=== PATIENT | female | born 1940 | race Caucasian/White ===

== ENCOUNTER → 2020-03-03 | Outpatient (CLI) | payer MEDICARE, OTHER ==
--- NOTE | 2020-03-04 22:55 | CT ---
EXAMINATION TYPE: CT lumbar spine wo con DATE OF EXAM: 03/03/2020 COMPARISON: None HISTORY: 79-year-old female low back pain with radiation bilaterally to the legs TECHNIQUE: Contiguous axial scanning of the lumbar spine without IV contrast. Coronal and sagittal re constructions performed. CT DLP: 559.5 mGycm Automated exposure control for dose reduction was used. FINDINGS: Punctate 2 mm nonobstructive left renal calculus. Calcified granulomas within the spleen. Small hiata l hernia. Moderate prostatic calcification throughout the abdominal aorta with fusiform infrarenal AAA measurin g 3.2 cm. Hypodense cortical lesions lateral right kidney measuring up to 1.6 cm, probable cysts. 2.2 cm diverticulum of the second/third portion of the duodenum projecting into the pancreatic head r egion. Mild degenerative changes at the SI joints. There is a left L5 hemisacralization with a degenerative assimilation joint. Moderate degenerative disc disease L5-S1 with diffuse disc bulge, mild height loss, and vacuum phenom enon. Mild degenerative disc disease elsewhere in the lumbar spine with bulging discs. Ligamentum flavum thickening greatest at L3-L4. Hypertrophic facet arthropathy mid and lower lumbar s pine. There is grade 1 anterolisthesis at L3-L4 and trace grade 1 retrolisthesis at L4-L5. Vertebral body heights are preserved. Posterior disc bulges impress on the ventral thecal sac at T12-L1, L1-L2, and L2-L3 without significa nt spinal canal stenosis. However, at L3-L4, diffuse disc bulge with ligamentum flavum thickening may contribute to a moderate to severe spinal canal stenosis. At L4-L5, there is a mild spinal canal stenosis. On the left, changes result in a moderate near foraminal stenosis at L4-L5 and L5-S1 and mild at L1-L 2. On the right, changes result in mild neuroforaminal stenoses at multiple levels. IMPRESSION: 1. MODERATE DEGENERATIVE DISC DISEASE L5-S1 AND MILD THROUGHOUT THE REMAINDER OF THE LUMBAR SPINE. 2. 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 GRADE 1 SPONDYLOLISTHESIS AT L3-L4 AND L 4-L5. 3. MARKED LIGAMENTUM FLAVUM THICKENING AT L3-L4. ALONG WITH DISC BULGE, THERE IS A MODERATE TO SEVERE SPINAL CANAL STENOSIS. MILD SPINAL CANAL STENOSIS AT L4-L5. 4. VARIABLE MILD TO MODERATE FORAMINAL STENOSES OUTLINED ABOVE, GREATER ON THE LEFT. 5. A 3.2 cm FUSIFORM INFRARENAL AAA. 6. LEFT L5 HEMISACRALIZATION WITH A DEGENERATIVE ASSIMILATION JOINT.
== END | disposition home or self-care (01) ==
LOC: RADCTMAIN 10:54
PROVIDERS: ATTEND Family Medicine
DX: M48.061 Spinal stenosis, lumbar region without neurogenic claudication (principal); M51.26 Other intervertebral disc displacement, lumbar region; M43.16 Spondylolisthesis, lumbar region; M43.17 Spondylolisthesis, lumbosacral region; M47.896 Other spondylosis, lumbar region; M51.36 Other intervertebral disc degeneration, lumbar region; M51.37 Other intervertebral disc degeneration, lumbosacral region; Z88.8 Allergy status to other drugs, medicaments and biological substances
CPT/HCPCS: 72131

== ENCOUNTER → 2021-02-13 | Outpatient (CLI) | payer MEDICARE | END | disposition home or self-care (01) | DX: N64.4 Mastodynia (principal) | CPT/HCPCS: 77066; 76642; G0279; 77062 ==

== ENCOUNTER 2021-05-28 19:02 | Emergency (ER) | payer MEDICARE ==
[2021-05-28 19:16] VITALS: TEMP 97
--- NOTE | 2021-05-28 20:07 | ED ---
General Adult HPI - General Chief complaint: Shortness of Breath Stated complaint: SOB Time Seen by Provider: 05/28/21 19:05 Source: patient, RN notes reviewed, old records reviewed Mode of arrival: wheelchair Limitations: no limitations - History of Present Illness Initial comments: This is an 80-year-old female presents emergency Department complaining of some nasal drainage and a cough. Patient states she went to [facility] and they told her that her pulse ox is in the 80s and she might have pneumonia. Patient was sent to our facility. Patient was oxygenating 96% on room air. Patient denied shortness of breath though the nursing notes that she was short of breath patient denied to me and family deny to me. Patient's only complaint was nasal drainage and occasionally coughing up a little bit of sputum. Patient denies any fever. Patient denies any swelling in legs or calf tenderness. Patient denies any chest pain or palpitations. Patient denies any abdominal pain patient denies nausea vomiting diarrhea. Patient states she did get the COVID vaccine. - Related Data Home Medications Medication Instructions Recorded Confirmed Calcium Carbonate [Calcium] 600 mg PO DAILY 07/31/16 07/31/16 Ibuprofen [Motrin] 800 mg PO Q6HR PRN 07/31/16 07/31/16 L.acidoph,Paracasei, B.lactis 1 cap PO DAILY 07/31/16 07/31/16 [Probiotic] Multivitamins, Thera [Multivitamin] 1 tab PO DAILY 07/31/16 07/31/16 Previous Rx's Medication Instructions Recorded Ciprofloxacin HCl [Cipro] 500 mg PO Q12HR 7 Days tablet 07/31/16 HYDROcodone/APAP 5-325MG [[place] 1 tab PO Q6HR PRN #20 tab 07/31/16 5-325] Allergies Allergy/AdvReac Type Severity Reaction Status Date / Time No Known Allergies Allergy Verified 05/28/21 19:12 Review of Systems ROS Statement: Those systems with pertinent positive or pertinent negative responses have been documented in the HPI. ROS Other: All systems not noted in ROS Statement are negative. Past Medical History Past Medical History: No Reported History History of Any Multi-Drug Resistant Organisms: None Reported Additional Past Surgical History / Comment(s): neck surgery Past Psychological History: No Psychological Hx Reported Smoking Status: Former smoker Past Alcohol Use History: None Reported Past Drug Use History: None Reported General Exam - General Exam Comments Initial Comments: GENERAL: Patient is well-developed and well-nourished. Patient is nontoxic and well- hydrated and is in no acute distress. ENT: Neck is soft and supple. No significant lymphadenopathy is noted. Oropharynx is clear. Moist mucous membranes. Neck has full range of motion without eliciting any pain. EYES: The sclera were anicteric and conjunctiva were pink and moist. Extraocular movements were intact and pupils were equal round and reactive to light. Eyelids were unremarkable. PULMONARY: Unlabored respirations. Good breath sounds bilaterally. No audible rales rhonchi or wheezing was noted. CARDIOVASCULAR: There is a regular rate and rhythm without any murmurs gallops or rubs. ABDOMEN: Soft and nontender with normal bowel sounds. SKIN: Skin is clear with no lesions or rashes and otherwise unremarkable. NEUROLOGIC: Patient is alert and oriented x3. Cranial nerves II through XII are grossly intact. Motor and sensory are also intact. Normal speech, volume and content. Symmetrical smile. MUSCULOSKELETAL: Normal extremities with adequate strength and full range of motion. LYMPHATICS: No significant lymphadenopathy is noted PSYCHIATRIC: Normal psychiatric evaluation. Limitations: no limitations Course Vital Signs 05/28/21 05/28/21 19:12 20:32 Temperature 97 F L Pulse Rate 93 83 Respiratory 18 20 Rate Blood Pressure 131/71 125/73 O2 Sat by Pulse 96 95 Oximetry Medical Decision Making - Medical Decision Making EKG shows normal sinus rhythm at 82 bpm DC interval 222 QRS is 82 QT interval 3 54 QTC is 413. Patient's EKG shows no ST segment elevation Chest x-ray shows no acute abnormality. Patient's pulse ox was 9596% all-time the emergency department. Patient stated that she had no symptoms at this time. - Lab Data Result diagrams: 05/28/21 20:13 Lab Results 05/28/21 Range/Units 20:13 WBC 6.7 (3.8-10.6) k/uL RBC 4.61 (3.80-5.40) m/uL Hgb 11.9 (11.4-16.0) gm/dL Hct 38.1 (34.0-46.0) % MCV 82.7 (80.0-100.0) fL MCH 25.7 (25.0-35.0) pg MCHC 31.1 (31.0-37.0) g/dL RDW 15.4 (11.5-15.5) % Plt Count 317 (150-450) k/uL MPV 6.6 Neutrophils % 71 % Lymphocytes % 17 % Monocytes % 8 % Eosinophils % 2 % Basophils % 1 % Neutrophils # 4.7 (1.3-7.7) k/uL Lymphocytes # 1.1 (1.0-4.8) k/uL Monocytes # 0.5 (0-1.0) k/uL Eosinophils # 0.1 (0-0.7) k/uL Basophils # 0.0 (0-0.2) k/uL Disposition Clinical Impression: Upper respiratory infection Disposition: HOME SELF-CARE Instructions (If sedation given, give patient instructions): Upper Respiratory Infection (ED) Is patient prescribed a controlled substance at d/c from ED?: No Referrals: Nikko De La Rosa Jr, DO [Primary Care Provider] - 1-2 days Time of Disposition: 21:14
--- NOTE | 2021-05-28 20:27 | XR ---
EXAMINATION TYPE: XR chest 2V DATE OF EXAM: 05/28/2021 COMPARISON: NONE HISTORY: Short of breath TECHNIQUE: 2 views FINDINGS: There is no heart failure nor confluent pneumonic infiltrate. Costophrenic angles are clear . There are no hilar masses. Thoracic aorta is atheromatous. There are chest leads. Bony thorax is in tact. IMPRESSION: No active cardiopulmonary disease. Normal heart.
[2021-05-28 21:06] LABS: Basophils % (A) 1 %; Eosinophils # (A) 0.1 k/uL (0-0.7); Eosinophils % (A) 2 %; HCT 38.1 % (34.0-46.0); HGB 11.9 gm/dL (11.4-16.0); Lymphocytes # (A) 1.1 k/uL (1.0-4.8); Lymphocytes % (A) 17 %; MCH 25.7 pg (25.0-35.0); MCHC 31.1 g/dL (31.0-37.0); MCV 82.7 fL (80.0-100.0); Mean Platelet Volume 6.6; Monocytes # (A) 0.5 k/uL (0-1.0); Monocytes % (A) 8 %; Neutrophils # (A) 4.7 k/uL (1.3-7.7); Neutrophils % (A) 71 %; Platelet Count 317 k/uL (150-450); RBC 4.61 m/uL (3.80-5.40); RDW 15.4 % (11.5-15.5); WBC 6.7 k/uL (3.8-10.6)
[2021-05-28 21:19] LABS: Albumin 4.1 g/dL (3.5-5.0); Calcium 9.7 mg/dL (8.4-10.2); Magnesium 2.5 mg/dL (1.6-2.3); Potassium 4.3 mmol/L (3.5-5.1); Total Bilirubin 0.5 mg/dL (0.2-1.3)
[2021-05-28 22:00] VITALS: BP 139/68; PULSE 79; RESP 18
== END 2021-05-28 21:34 | disposition home or self-care (01) ==
LOC: EC 19:02
DX: J06.9 Acute upper respiratory infection, unspecified (principal); Z87.891 Personal history of nicotine dependence; Z23 Encounter for immunization; Z20.822 Contact with and (suspected) exposure to COVID-19
CPT/HCPCS: 36415; 71046; 80053; 83605; 83735; 83880; 84484; 85025; 87635; 93005; 99285

== ENCOUNTER 2022-06-21 15:26 | Emergency (ER) | payer MEDICARE ==
[2022-06-21 15:40] VITALS: TEMP 98.1
--- NOTE | 2022-06-21 15:42 | ED ---
General Adult HPI - General Chief complaint: Recheck/Abnormal Lab/Rx Stated complaint: Bleeding Time Seen by Provider: 06/21/22 15:34 Source: EMS Mode of arrival: EMS Limitations: no limitations - History of Present Illness Initial comments: 's patient is an 81-year-old woman who is reported that have history of dementia. She is sent here from her long-term care facility to have an evaluation. Patient's family reportedly went for her visit today and when they were went in the patient's bathroom they saw and amount of blood on the floor. Per the report was estimated between 20 and 30 mL. The patient is not able to account for this. When I interview the patient, she denies complaints. Severity scale (1-10): 0 Improves with: none Worsens with: none Associated Symptoms: denies other symptoms Treatments Prior to Arrival: none - Related Data Home Medications Medication Instructions Recorded Confirmed Calcium Carbonate [Calcium] 600 mg PO DAILY 07/31/16 07/31/16 Ibuprofen [Motrin] 800 mg PO Q6HR PRN 07/31/16 07/31/16 L.acidoph,Paracasei, B.lactis 1 cap PO DAILY 07/31/16 07/31/16 [Probiotic] Multivitamins, Thera [Multivitamin] 1 tab PO DAILY 07/31/16 07/31/16 Previous Rx's Medication Instructions Recorded Ciprofloxacin HCl [Cipro] 500 mg PO Q12HR 7 Days tablet 07/31/16 HYDROcodone/APAP 5-325MG [[place] 1 tab PO Q6HR PRN #20 tab 07/31/16 5-325] Allergies Allergy/AdvReac Type Severity Reaction Status Date / Time No Known Allergies Allergy Verified 06/21/22 15:39 Review of Systems ROS Statement: Those systems with pertinent positive or pertinent negative responses have been documented in the HPI. ROS Other: All systems not noted in ROS Statement are negative. Constitutional: Denies: fever Respiratory: Denies: cough, dyspnea Cardiovascular: Denies: chest pain Gastrointestinal: Denies: abdominal pain, vomiting Musculoskeletal: Denies: back pain Neurological: Denies: headache Past Medical History Past Medical History: No Reported History History of Any Multi-Drug Resistant Organisms: None Reported Additional Past Surgical History / Comment(s): neck surgery Past Psychological History: No Psychological Hx Reported Smoking Status: Former smoker Past Alcohol Use History: None Reported Past Drug Use History: None Reported General Exam Limitations: no limitations General appearance: alert, in no apparent distress Head exam: Present: atraumatic, normocephalic Eye exam: Present: normal appearance. Absent: scleral icterus, conjunctival injection Respiratory exam: Present: normal lung sounds bilaterally. Absent: respiratory distress, wheezes, rales, rhonchi, stridor Cardiovascular Exam: Present: regular rate, normal rhythm, normal heart sounds. Absent: systolic murmur, diastolic murmur, rubs, gallop GI/Abdominal exam: Present: soft. Absent: distended, tenderness, guarding, rebound, rigid, mass Extremities exam: Present: normal inspection, normal capillary refill Back exam: Present: normal inspection. Absent: vertebral tenderness Neurological exam: Present: alert Skin exam: Present: warm, dry, intact, pallor. Absent: rash Course Vital Signs 06/21/22 06/21/22 15:32 19:00 Temperature 98.1 F Pulse Rate 81 96 Respiratory 18 16 Rate Blood Pressure 165/95 153/73 O2 Sat by Pulse 96 99 Oximetry Medical Decision Making - Medical Decision Making This patient is an 81-year-old woman brought to have evaluation of suspected hematemesis versus possible hemoptysis. Workup, patient found to be anemic versus baseline. Last hemoglobin from May 28 was 11.9 today 8.9 Rectal exam does reveal melanotic stool which is occult positive. Did have detailed discussion with family at bedside regarding treatment options and they would prefer the patient seen by gastroenterology as there is not covering GI physician, will transfer and the are in agreement with Stephanie Duckworth. Case discussed with Dr. Justice will accept transfer. - Lab Data Result diagrams: 06/21/22 15:50 06/21/22 15:50 Lab Results 06/21/22 06/21/22 06/21/22 Range/Units 15:50 15:50 17:33 WBC 6.8 (3.8-10.6) k/uL RBC 3.27 L (3.80-5.40) m/uL Hgb 8.9 L (11.4-16.0) gm/dL Hct 27.1 L (34.0-46.0) % MCV 83.0 (80.0-100.0) fL MCH 27.3 (25.0-35.0) pg MCHC 32.9 (31.0-37.0) g/dL RDW 16.7 H (11.5-15.5) % Plt Count 278 (150-450) k/uL MPV 7.5 Neutrophils % 75 % Lymphocytes % 18 % Monocytes % 5 % Eosinophils % 1 % Basophils % 1 % Neutrophils # 5.0 (1.3-7.7) k/uL Lymphocytes # 1.2 (1.0-4.8) k/uL Monocytes # 0.4 (0-1.0) k/uL Eosinophils # 0.0 (0-0.7) k/uL Basophils # 0.0 (0-0.2) k/uL Hypochromasia Moderate Anisocytosis Slight Sodium 139 (137-145) mmol/L Potassium 4.1 (3.5-5.1) mmol/L Chloride 106 (98-107) mmol/L Carbon Dioxide 22 (22-30) mmol/L Anion Gap 11 mmol/L BUN 39 H (7-17) mg/dL Creatinine 0.62 (0.52-1.04) mg/dL Est GFR (CKD-EPI)AfAm >90 (>60 ml/min/1.73 sqM) Est GFR (CKD-EPI)NonAf 84 (>60 ml/min/1.73 sqM) Glucose 109 H (74-99) mg/dL Calcium 8.5 (8.4-10.2) mg/dL Total Bilirubin 0.5 (0.2-1.3) mg/dL AST 23 (14-36) U/L ALT 19 (4-34) U/L Alkaline Phosphatase 52 (38-126) U/L Total Protein 6.2 L (6.3-8.2) g/dL Albumin 3.9 (3.5-5.0) g/dL Stool Occult Blood Positive H (Negative) Disposition Clinical Impression: Anemia, GI bleeding Disposition: OTHER INSTITUTION NOT DEFINED Condition: Fair Is patient prescribed a controlled substance at d/c from ED?: No Referrals: Nikko De La Rosa Jr, DO [Primary Care Provider] - 1-2 days - Out of Hospital Transfer - Req. Specs Out of Hospital Transfer - Requested Specifics: Other Emergency Center
[2022-06-21 16:12] LABS: Anisocytosis Slight; Basophils % (A) 1 %; Eosinophils % (A) 1 %; HCT 27.1 % (34.0-46.0); HGB 8.9 gm/dL (11.4-16.0); Hypochromasia Moderate; Lymphocytes # (A) 1.2 k/uL (1.0-4.8); Lymphocytes % (A) 18 %; MCH 27.3 pg (25.0-35.0); MCHC 32.9 g/dL (31.0-37.0); Mean Platelet Volume 7.5; Monocytes # (A) 0.4 k/uL (0-1.0); Monocytes % (A) 5 %; Neutrophils % (A) 75 %; Platelet Count 278 k/uL (150-450); RBC 3.27 m/uL (3.80-5.40); RDW 16.7 % (11.5-15.5); WBC 6.8 k/uL (3.8-10.6)
[2022-06-21 16:56] LABS: ALT 19 U/L (4-34); AST 23 U/L (14-36); African American GFR (CKD) >90 (>60 ml/min/1.73 sqM); Albumin 3.9 g/dL (3.5-5.0); Alkaline Phosphatase 52 U/L (38-126); Anion Gap 11 mmol/L; Blood Urea Nitrogen 39 mg/dL (7-17); Calcium 8.5 mg/dL (8.4-10.2); Carbon Dioxide 22 mmol/L (22-30); Chloride 106 mmol/L (98-107); Glucose 109 mg/dL (74-99); Non-African American GFR(CKD) 84 (>60 ml/min/1.73 sqM); Potassium 4.1 mmol/L (3.5-5.1); Sodium 139 mmol/L (137-145); Total Bilirubin 0.5 mg/dL (0.2-1.3); Total Protein 6.2 g/dL (6.3-8.2)
--- NOTE | 2022-06-21 17:24 | XR ---
EXAMINATION TYPE: XR chest 2V DATE OF EXAM: 06/21/2022 COMPARISON: 06/28/2021 HISTORY: Cough TECHNIQUE: Frontal and lateral views of the chest are obtained. FINDINGS: There is no focal air space opacity, pleural effusion, or pneumothorax seen. The cardiac silhouette size is within normal limits. The osseous structures are intact. IMPRESSION: No acute cardiopulmonary process.
[2022-06-21 19:22] VITALS: BP 153/73; PULSE 96; RESP 16
== END 2022-06-21 19:59 | disposition other institution (70) ==
LOC: EC 15:26
DX: D64.9 Anemia, unspecified (principal); K92.2 Gastrointestinal hemorrhage, unspecified; Z87.891 Personal history of nicotine dependence
CPT/HCPCS: 36415; 71046; 80053; 82272; 85025; 99284

== ENCOUNTER 2023-01-29 22:12 | Inpatient (IN) | payer MEDICARE ==
--- NOTE | 2023-01-29 22:52 | ED ---
General Adult HPI - General Chief complaint: Altered Mental Status Stated complaint: AMS, Weakness Time Seen by Provider: 01/29/23 22:22 Source: family Mode of arrival: ambulatory Limitations: no limitations - History of Present Illness Initial comments: Dictation was produced using [employer] dictation software. please excuse any grammatical, word or spelling errors. Chief Complaint: 82-year-old female presents to the emergency department for altered mental status. History of Present Illness: Patient is 82-year-old female she was seen by her primary care doctor proximally one month ago for symptoms of dementia. She was prescribed dementia medications. Initial cell follow-up appointment tomorrow. Patient apparently lives at independent living facility. History obtained from daughter states that patient is having worsening mental status changes. She has been refusing baths not caring for herself. Daughter reports that patient needs placement. Patient has no complaints at this time. The ROS documented in this emergency department record has been reviewed and confirmed by me. Those systems with pertinent positive or negative responses have been documented in the HPI. All other systems are other negative and/or n oncontributory. - Related Data Home Medications Medication Instructions Recorded Confirmed Calcium Carbonate [Calcium] 600 mg PO DAILY 07/31/16 07/31/16 Ibuprofen [Motrin] 800 mg PO Q6HR PRN 07/31/16 07/31/16 L.acidoph,Paracasei, B.lactis 1 cap PO DAILY 07/31/16 07/31/16 [Probiotic] Multivitamins, Thera [Multivitamin] 1 tab PO DAILY 07/31/16 07/31/16 Previous Rx's Medication Instructions Recorded Ciprofloxacin HCl [Cipro] 500 mg PO Q12HR 7 Days tablet 07/31/16 HYDROcodone/APAP 5-325MG [[place] 1 tab PO Q6HR PRN #20 tab 07/31/16 5-325] Allergies Allergy/AdvReac Type Severity Reaction Status Date / Time No Known Allergies Allergy Verified 01/29/23 22:22 Review of Systems ROS Statement: Those systems with pertinent positive or pertinent negative responses have been documented in the HPI. ROS Other: All systems not noted in ROS Statement are negative. Past Medical History Past Medical History: No Reported History History of Any Multi-Drug Resistant Organisms: None Reported Additional Past Surgical History / Comment(s): neck surgery Past Psychological History: No Psychological Hx Reported Smoking Status: Former smoker Past Alcohol Use History: None Reported Past Drug Use History: None Reported General Exam - General Exam Comments Initial Comments: PHYSICAL EXAM: General Impression: Alert and oriented x2/4, not in acute distress HEENT: Normocephalic atraumatic, extra-ocular movements intact, pupils equal and reactive to light bilaterally, mucous membranes moist. Cardiovascular: Heart regular rate and rhythm Chest: Able to complete full sentences, no retractions, no tachypnea Abdomen: abdomen soft, non-tender, non-distended, no organomegaly Musculoskeletal: Pulses present and equal in all extremities, no peripheral edema Motor: no focal deficits noted Neurological: CN II-XII grossly intact, no focal motor or sensory deficits noted Skin: Intact with no visualized rashes Psych: Normal affect and mood Limitations: no limitations Course Vital Signs 01/29/23 01/29/23 01/29/23 22:18 22:21 23:00 Temperature 98.1 F Pulse Rate 88 765 H 73 Respiratory 18 16 20 Rate Blood Pressure 94/62 83/44 O2 Sat by Pulse 97 95 Oximetry EKG Findings - EKG Comments: EKG Findings:: My EKG interpretation: Ventricular rate 79, sinus rhythm,. 122, QRS 86, QTC 391. No FL prolongation, no QTC prolongation, no ST or T-wave changes noted. Overall, this EKG is unremarkable Medical Decision Making - Medical Decision Making Was pt. sent in by a medical professional or institution (, PA, FIRST OFFICER AND FLIGHT INSTRUCTOR, urgent care, hospital, or halfway...) When possible be specific @ -No Did you speak to anyone other than the patient for history (EMS, parent, family, police, friend...)? What history was obtained from this source @ -History of present illness obtained from daughter was at the bedside. See above for further detail Did you review nursing and triage notes (agree or disagree)? Why? @ -I reviewed and agree with nursing and triage notes Were old charts reviewed (outside hosp., previous admission, EMS record, old EKG, old radiological studies, urgent care reports/EKG's, halfway records)? Report findings @ -No old charts were reviewed Differential Diagnosis (chest pain, altered mental status, abdominal pain women, abdominal pain men, vaginal bleeding, musculoskeletal, weakness, fever, dyspnea, syncope, headache, dizziness, GI bleed, back pain, seizure, CVA, palpatations, mental health)? @ -Differential Altered Mental Status: Hypoglycemia, DKA, hypercapnia, ETOH, overdose, CO poisoning, trauma, myxedema coma, HTN encephalopathy, infection, encephalitis, psychosis, intercranial hemorrhage, hepatic encephalopathy, meningitis, CVA, this is not meant to be an all-inclusive list EKG interpreted by me (3pts min.). @ -As above X-rays interpreted by me (1pt min.). @ -None done CT interpreted by me (1pt min.). @ -Computed tomography scan the brain is unremarkable U/S interpreted by me (1pt. min.). @ -None done What testing was considered but not performed or refused? (CT, X-rays, U/S, labs)? Why? @ -None What meds were considered but not given or refused? Why? @ -None Did you discuss the management of the patient with other professionals (professionals i.e. , PA, FIRST OFFICER AND FLIGHT INSTRUCTOR, lab, RT, psych nurse, manager social responsibility, welt cutter, teacher, president and chief executive officer, bottle caser)? Give summary @ -Presentation, family's wishes and concerns were discussed with Dr. De La Rosa for admission Was smoking cessation discussed for >3mins.? @ -No Was critical care preformed (if so, how long)? @ -No Were there social determinants of health that impacted care today? How? (Homelessness, low income, unemployed, alcoholism, drug addiction, transport ation, low edu. Level, literacy, decrease access to med. care, group home, rehab)? @ -No Was there de-escalation of care discussed even if they declined (Discuss DNR or withdrawal of care, Hospice)? DNR status @ -No What co-morbidities impacted this encounter? (DM, HTN, Smoking, COPD, CAD, Cancer, CVA, ARF, Chemo, Hep., AIDS, mental health diagnosis, sleep apnea, morbid obesity)? @ -None Was patient admitted / discharged? Hospital course, mention meds given and route, prescriptions, significant lab abnormalities, going to OR and other pertinent info. @ -82-year-old female with worsening dementia presents to the ER for acutely worsening status changes. Vital signs are stable. Patient likely had progressive dementia. Blood work is unremarkable. Urinalysis positive for urinary tract infection. Patient given ceftriaxone. Patient be admitted for further care. Undiagnosed new problem with uncertain prognosis? @ -No Drug Therapy requiring intensive monitoring for toxicity (Heparin, Nitro, Insulin, Cardizem)? @ -No Were any procedures done? @ -No Diagnosis/symptom? Acute, or Chronic, or Acute on Chronic? Uncomplicated (wit hout systemic symptoms) or Complicated (systemic symptoms)? @ -UTI with mental status changes Side effects of treatment? @ -No Exacerbation, Progression, or Severe Exacerbation? @ -No Poses a threat to life or bodily function? How? (Chest pain, [place], PA, pneumonia, PE, COPD, DKA, ARF, appy, cholecystitis, CVA, Diverticulitis, Homicidal, Suicidal, threat to staff... and all critical care pts) @ -yes - Lab Data Result diagrams: 01/29/23 22:50 01/29/23 22:50 Lab Results 01/29/23 01/29/23 01/30/23 Range/Units 22:50 22:50 01:57 WBC 6.4 (3.8-10.6) k/uL RBC 4.74 (3.80-5.40) m/uL Hgb 9.3 L (11.4-16.0) gm/dL Hct 31.4 L (34.0-46.0) % MCV 66.1 L (80.0-100.0) fL MCH 19.6 L (25.0-35.0) pg MCHC 29.6 L (31.0-37.0) g/dL RDW 17.9 H (11.5-15.5) % Plt Count 384 (150-450) k/uL MPV 7.0 Neutrophils % 66 % Lymphocytes % 20 % Monocytes % 9 % Eosinophils % 3 % Basophils % 1 % Neutrophils # 4.2 (1.3-7.7) k/uL Lymphocytes # 1.3 (1.0-4.8) k/uL Monocytes # 0.6 (0-1.0) k/uL Eosinophils # 0.2 (0-0.7) k/uL Basophils # 0.0 (0-0.2) k/uL Hypochromasia Marked Anisocytosis Slight Microcytosis Marked Sodium 134 L (137-145) mmol/L Potassium 4.2 (3.5-5.1) mmol/L Chloride 99 (98-107) mmol/L Carbon Dioxide 29 (22-30) mmol/L Anion Gap 6 mmol/L BUN 16 (7-17) mg/dL Creatinine 0.92 (0.52-1.04) mg/dL Est GFR (CKD-EPI)AfAm 67 (>60 ml/min/1.73 sqM) Est GFR (CKD-EPI)NonAf 58 (>60 ml/min/1.73 sqM) Glucose 112 H (74-99) mg/dL Calcium 8.6 (8.4-10.2) mg/dL Urine Color Yellow Urine Appearance Cloudy H (Clear) Urine pH 6.0 (5.0-8.0) Ur Specific [place] 1.018 (1.001-1.035) Urine Protein Trace H (Negative) Urine Glucose (UA) Negative (Negative) Urine Ketones Negative (Negative) Urine Blood Negative (Negative) Urine Nitrite Negative (Negative) Urine Bilirubin Negative (Negative) Urine Urobilinogen 4.0 (<2.0) mg/dL Ur Leukocyte Esterase Large H (Negative) Urine RBC 2 (0-5) /hpf Urine WBC 45 H (0-5) /hpf Urine WBC Clumps Many H (None) /hpf Ur Squamous Epith Cells 2 (0-4) /hpf Calcium Oxalate Crystal Moderate H (None) /hpf Amorphous Sediment Occasional H (None) /hpf Urine Bacteria Many H (None) /hpf Hyaline Casts 5 H (0-2) /lpf Urine Mucus Moderate H (None) /hpf Disposition Clinical Impression: UTI (urinary tract infection) Disposition: ADMITTED IP TO THIS [facility] Condition: Fair Referrals: Nikko De La Rosa Jr, DO [Primary Care Provider] - 1-2 days Decision Time: 03:00
[2023-01-29 23:14] LABS: Anisocytosis Slight; Basophils % (A) 1 %; Eosinophils # (A) 0.2 k/uL (0-0.7); Eosinophils % (A) 3 %; HCT 31.4 % (34.0-46.0); HGB 9.3 gm/dL (11.4-16.0); Hypochromasia Marked; Lymphocytes # (A) 1.3 k/uL (1.0-4.8); Lymphocytes % (A) 20 %; MCH 19.6 pg (25.0-35.0); MCHC 29.6 g/dL (31.0-37.0); MCV 66.1 fL (80.0-100.0); Microcytosis Marked; Monocytes # (A) 0.6 k/uL (0-1.0); Monocytes % (A) 9 %; Neutrophils # (A) 4.2 k/uL (1.3-7.7); Neutrophils % (A) 66 %; Platelet Count 384 k/uL (150-450); RBC 4.74 m/uL (3.80-5.40); RDW 17.9 % (11.5-15.5); WBC 6.4 k/uL (3.8-10.6)
[2023-01-29 23:16] LABS: African American GFR (CKD) 67 (>60 ml/min/1.73 sqM); Anion Gap 6 mmol/L; Blood Urea Nitrogen 16 mg/dL (7-17); Calcium 8.6 mg/dL (8.4-10.2); Carbon Dioxide 29 mmol/L (22-30); Chloride 99 mmol/L (98-107); Glucose 112 mg/dL (74-99); Non-African American GFR(CKD) 58 (>60 ml/min/1.73 sqM); Potassium 4.2 mmol/L (3.5-5.1); Sodium 134 mmol/L (137-145)
--- NOTE | 2023-01-30 01:53 | CT ---
EXAM: CT Head Without Intravenous Contrast CLINICAL HISTORY: ITS.REASON CT Reason: ams TECHNIQUE: Axial computed tomography images of the head/brain without intravenous contrast. CTDI is 49.1 mGy and DLP is 1217.4 mGy-cm. This CT exam was performed using one or more of the following dose reduction techniques: automated exposure control, adjustment of the mA and/or kV according to patient size, and/or use of iterative reconstruction technique. COMPARISON: None FINDINGS: Brain: No acute infarct or hemorrhage identified. No extra-axial fluid collection. No mass effect or midline shift. Scattered areas of hypoattenuation in the supratentorial white matter likely represent chronic small vessel ischemic changes. Ventricles and sulci: Prominence of the ventricles and sulci is likely secondary to cerebral volume loss. Bones: Degenerative changes of the temporomandibular joints. No bony lesion or acute fracture. Subcutaneous tissues: Normal. Sinuses: Normal. No air-fluid levels or mucosal thickening. Mastoid air cells: Normal. Orbits: Bilateral lens implants. Other: Atherosclerotic calcifications in the intracranial vasculature. IMPRESSION: 1. No acute intracranial abnormality. 2. Chronic small vessel ischemic changes and cerebral volume loss.
[2023-01-30 03:02] LABS: Amorphous Sediment,Urine Occasional /hpf; Appearance,Urine Cloudy (Clear); Bacteria,Urine Many /hpf; Bilirubin,Urine Negative (Negative); Blood,Urine Negative (Negative); Calcium Oxalate Crystals,Urine Moderate /hpf; Color,Urine Yellow; Glucose,Urine (UA) Negative (Negative); Hyaline Casts,Urine 5 /lpf (0-2); Ketones,Urine Negative (Negative); Leukocyte Esterase,Urine Large (Negative); Mucus,Urine Moderate /hpf; Nitrite,Urine Negative (Negative); Protein,Urine Trace (Negative); RBC,Urine 2 /hpf (0-5); Specific Gravity,Urine 1.018 (1.001-1.035); Squamous Epithelial Cell,Urine 2 /hpf (0-4); WBC,Urine 45 /hpf (0-5)
[2023-01-30] MEDS ORDERED: cefTRIAXone IN SWFI 1,000 MG/10 ML SYRINGE IVP STA (03:09)
[2023-01-30] MEDS ORDERED: ONDANSETRON 4 MG/2 ML VIAL IVP STA ×2 (03:09→11:34)
[2023-01-30] MEDS ORDERED: NALOXONE 0.4 MG/ML 1 ML VIAL IV PRN (03:40)
[2023-01-30] MEDS: SODIUM CHLORIDE 0.9% 1,000 ML IV SCH (07:45)
[2023-01-30] MEDS ORDERED: HYDROmorphone 0.5 MG/0.5 ML SYRINGE IVP STA (11:33)
--- NOTE | 2023-01-30 19:44 | P.HPIM ---
History of Present Illness H&P Date: 01/30/23 Chief Complaint: Altered mental status This is an 82-year-old female well-known to my practice who presents the emergency room with altered mental status, patient has been showing evidence of short-term memory loss and symptoms of dementia over the last approximately 8 months which seems to becoming progressively worse. She was started on Aricept and Namenda, which has appeared to sepsis slowed down the process but it is progress patient started developing significant memory loss and confusion and her daughter brought her into the emergency room it appears that she had a urinary tract infection as well Review of Systems Constitutional: Reports weakness Ears, nose, mouth and throat: Reports as per HPI Cardiovascular: Reports as per HPI Respiratory: Reports as per HPI Gastrointestinal: Reports as per HPI Genitourinary: Reports urge incontinence Menstruation: Reports postmenopausal Neurological: Reports balance difficulties, Reports change in mentation, Reports confusion, Reports hearing difficulties, Reports memory loss Psychiatric: Reports anxiety attacks Endocrine: Reports as per HPI Hematologic/Lymphatic: Reports as per HPI Allergic/Immunologic: Reports as per HPI Past Medical History Past Medical History: No Reported History History of Any Multi-Drug Resistant Organisms: None Reported Additional Past Surgical History / Comment(s): neck surgery Past Psychological History: No Psychological Hx Reported Smoking Status: Former smoker Past Alcohol Use History: None Reported Past Drug Use History: None Reported Medications and Allergies Home Medications Medication Instructions Recorded Confirmed Type Donepezil [Aricept] 5 mg PO HS 01/30/23 01/30/23 History Allergies Allergy/AdvReac Type Severity Reaction Status Date / Time No Known Allergies Allergy Verified 01/30/23 09:28 Physical Exam Osteopathic Statement: *. No significant issues noted on an osteopathic structural exam other than those noted in the History and Physical/Consult. Vitals: Vital Signs Temp Pulse Pulse Resp BP BP Pulse Ox 01/30/23 18:20 98.2 F 56 L 18 144/72 92 L 01/30/23 17:00 72 18 137/81 96 01/30/23 11:26 98.4 F 72 18 135/78 96 01/30/23 04:27 75 16 135/58 95 01/29/23 23:00 73 20 01/29/23 22:21 765 H 16 83/44 95 01/29/23 22:18 98.1 F 88 18 94/62 97 General: [Patient awake, alert and oriented times 3. Patient in no acute distress.] HEENT: [PERRL. EOMI. No pharyngeal erythema or exudate.] Neck: [No adenopathy.] Cardiac: [Heart regular in rate and rhythm. No S3. No S4. No clicks, rubs. No murmur.] Lungs: [Clear to auscultation bilaterally.] Abdomen: [No mass. No organomegaly. Bowel sounds presnt and normoactive in all 4 quadrants.] Extremes: [No edema no cyanosis no claudication normal pulses] : Normal female genitalia Musculoskeletal: [No joint erythema, edema or tenderness.] Skin: [No rash.] Neurologic: [No lateralizing deficits. CN II - XII grossly intact.] Lymphatic: [No adenopathy.] Results CBC & Chem 7: 01/29/23 22:50 01/29/23 22:50 Labs: Abnormal Lab Results - Last 24 Hours (Table) 01/29/23 01/29/23 01/30/23 Range/Units 22:50 22:50 01:57 Hgb 9.3 L (11.4-16.0) gm/dL Hct 31.4 L (34.0-46.0) % MCV 66.1 L (80.0-100.0) fL MCH 19.6 L (25.0-35.0) pg MCHC 29.6 L (31.0-37.0) g/dL RDW 17.9 H (11.5-15.5) % Sodium 134 L (137-145) mmol/L Glucose 112 H (74-99) mg/dL Urine Appearance Cloudy H (Clear) Urine Protein Trace H (Negative) Ur Leukocyte Esterase Large H (Negative) Urine WBC 45 H (0-5) /hpf Urine WBC Clumps Many H (None) /hpf Calcium Oxalate Crystal Moderate H (None) /hpf Amorphous Sediment Occasional H (None) /hpf Urine Bacteria Many H (None) /hpf Hyaline Casts 5 H (0-2) /lpf Urine Mucus Moderate H (None) /hpf Thrombosis Risk Factor Assmnt - DVT/VTE Prophylaxis DVT/VTE Prophylaxis: Pharmacologic Prophylaxis ordered - Choose All That Apply Each Risk Factor Represents 3 Points: Age 75 years or older Other congenital or acquired thrombophilia - If yes, enter type in comment: No Thrombosis Risk Factor Assessment Total Risk Factor Score: 3 Thrombosis Risk Factor Assessment Level: Moderate Risk Assessment and Plan (1) Altered mental status Current Visit: Yes Status: Acute Code(s): R41.82 - ALTERED MENTAL STATUS, UNSPECIFIED SNOMED Code(s): 687800544 (2) Dementia Current Visit: Yes Status: Acute Code(s): F03.90 - UNSP DEMENTIA, UNSP SEVERITY, WITHOUT BEH/PSYCH/MOOD/ANX SNOMED Code(s): 47324731 Plan: Admit to hospital And the IV antibiotics Urinary tract infection Altered mental state Dementia Requiring placement Time with Patient: Greater than 30
[2023-01-30] MEDS ORDERED: DONEPEZIL 5 MG TAB PO SCH (21:00)
[2023-01-30] MEDS: MELATONIN 3 MG TABLET PO SCH (21:10)
[2023-01-31] MEDS: SODIUM CHLORIDE 0.9% 1,000 ML IV SCH (03:55)
--- NOTE | 2023-01-31 09:17 | P.CNNES ---
History of Present Illness Consult date: 01/30/23 Requesting physician: Nikko De La Rosa Jr Reason for Consult: Altered mental status History of Present Illness: Patient is a 82-year-old female with history of dementia was brought to the hospital by patient's daughter yesterday at 10:12 PM because of mental status change, and patient not able to take care of her self. Patient apparently lives by herself and daughter was concerned about patient's safety to be able to live alone by herself. Patient has short-term memory loss and symptoms of dementia over the last 8 months which seems to be getting worse as well. Patient has some recent mental status change, which prompted to the hospital. No falls. Patient states that she lives with her daughter and her , although initially she is living by herself. She does not remember why she came to the hospital. Patient's daughter daily comes in visit her mom, but patient's daughter has her own family and has been difficult to take care of her family and patient's mother at the same time. Patient's daughter is interested in patient to be move to assisted living facility. According to Vital signs on arrival blood pressure 94/62, pulse rate 88 depression and 8.1. Repeat blood pressure 83/44, but then went up to 135/88. EKG shows sinus rhythm. CT head showed no acute intracranial abnormality. Chronic small vessel ischemic changes and cerebral volume loss. I personally reviewed CT head, agree with the findings. Visualized paranasal sinuses are clear. Patient's blood test shows normal WBC, hemoglobin 9.3, platelets 384, sodium 134 potassium 4.2, normal renal functions, UA shows large amount of leukocyte Estrace, 45 wbc's with many clumps and many bacteria. Patient has been diagnosed with UTI, started on ceftriaxone. Patient does take donepezil 5 mg daily. She has been on Namenda in the past as well it appears. Patient used to smoke about 5 cigarettes per day for 10 years, which she stopped quite a while ago. She drinks alcohol once in a while. Her appetite is good, no problem with bowel movement. Review of Systems Constitutional: Denies chills, Denies fever Eyes: denies blurred vision, denies diplopia, denies discharge, denies pain Ears: deny: ear discharge, earache Ears, nose, mouth and throat: Denies headache, Denies sore throat Cardiovascular: Denies chest pain, Denies shortness of breath Respiratory: Denies cough, Denies excessive sputum Gastrointestinal: Denies abdominal pain, Denies diarrhea, Denies nausea, Denies vomiting Genitourinary: Denies hematuria, Denies pelvic pain Musculoskeletal: Denies fractures, Denies myalgias Integumentary: Denies pruritus, Denies rash Neurological: Reports as per HPI Psychiatric: Reports confusion, Reports memory loss Endocrine: Denies fatigue, Denies weight change Past Medical History Past Medical History: No Reported History History of Any Multi-Drug Resistant Organisms: None Reported Additional Past Surgical History / Comment(s): neck surgery Past Psychological History: No Psychological Hx Reported Smoking Status: Former smoker Past Alcohol Use History: None Reported Past Drug Use History: None Reported Medications and Allergies Home Medications Medication Instructions Recorded Confirmed Type Donepezil [Aricept] 5 mg PO HS 01/30/23 01/30/23 History Allergies Allergy/AdvReac Type Severity Reaction Status Date / Time No Known Allergies Allergy Verified 01/30/23 09:28 Physical Examination - Vital Signs Vital Signs: Vital Signs Temp Pulse Resp BP Pulse Ox 01/30/23 11:26 98.4 F 72 18 135/78 96 01/30/23 04:27 75 16 135/58 95 01/29/23 23:00 73 20 01/29/23 22:21 765 H 16 83/44 95 01/29/23 22:18 98.1 F 88 18 94/62 97 Patient is an elderly female, sitting comfortably on the side of the bed. Patient is in no acute distress. Patient is alert awake. Patient knows her name, her date of and she thinks she is around 79 years of age. She states that she is in [facility], but does not know the city. She believes that she is in "[facility] Patient could not tell name of the building she is in. Patient could not tell the current month or the year and she believes it is the fall season. Patient could not tell me name of the current president. oriented to time place and person. Speech and language functions are normal. Patient can name and repeat very well. No aphasia or dysarthria. Attention, concentration is intact and fund of knowledge is quite limited. Patient has negative palmomental reflex, positive visuospatial apraxia. On cranial nerve examination, her pupils are unequal, the right is larger than the left and the right pupil is surgical. Both are probably reactive to light Her visual colbert are full on confrontation, with no neglect on double simultaneous stimulation. Extraocular muscles are intact with no nystagmus. Fa ce is symmetric, tongue protrudes to the midline. Palatal elevation and sensation normal, hearing and shoulder shrug normal, facial sensation normal. On muscle strength testing, there is no pronator drift and the strength is normal in arms and legs distally and proximally. Deep tendon reflexes are symmetric 2 all over and plantars downgoing. Sensory to touch is equal with no neglect on double simultaneous stimulation. Cerebellar function showed no ataxia for [id number] testing. No dy sdiadochokinesia. No ataxia for [id number] testing on either side. Tone and bulk of muscles normal. Gait patient walks okay, but sometimes she loses balance and hangs onto the furniture. On general examination, there is no carotid bruit or murmur, S1-S2 audible. Chest is clear on consultation. Abdomen is soft nontender. No organomegaly, bowel sounds present. Peripheral pulses are present. No edema. Results - Laboratory Findings CBC and BMP: 01/29/23 22:50 01/29/23 22:50 Abnormal Lab Findings: Abnormal Labs 01/29/23 01/29/23 01/30/23 22:50 22:50 01:57 Hgb 9.3 L Hct 31.4 L MCV 66.1 L MCH 19.6 L MCHC 29.6 L RDW 17.9 H Sodium 134 L Glucose 112 H Urine Appearance Cloudy H Urine Protein Trace H Ur Leukocyte Esterase Large H Urine WBC 45 H Urine WBC Clumps Many H Calcium Oxalate Crystal Moderate H Amorphous Sediment Occasional H Urine Bacteria Many H Hyaline Casts 5 H Urine Mucus Moderate H Assessment and Plan Assessment: * Altered mental status, likely due to mild metabolic encephalopathy due to acute UTI * Acute UTI * Dementia, at least moderate degree Plan: * Patient started on ceftriaxone 1 g daily for UTI. * Patient is currently on Aricept 5 mg daily. We will optimize the dose to 10 mg daily. * We will check B12, folate, TSH. * insemination worker consult for possible placement. * Neurologically, no other workup indicated. Discussed with primary physician. Thank you for the consult.
--- NOTE | 2023-01-31 13:15 | P.PN ---
Subjective Progress Note Date: 01/31/23 Principal diagnosis: Mental status change, dementia She is sleeping but arousable alert to person but not alert to place or time, otherwise pleasantly demented 82-year-old female well-known to my practice she seems to be significantly improved back to baseline mentally still unable to perform activities of daily living without supervision Objective - Vital Signs Vital signs: Vital Signs Temp 98.5 F 01/31/23 07:46 Pulse 96 01/31/23 07:46 Resp 17 01/31/23 07:46 BP 121/73 01/31/23 07:46 Pulse Ox 96 01/31/23 07:46 FiO2 Intake & Output 01/30/23 01/31/23 01/31/23 18:59 06:59 18:59 Weight 72.575 kg Other: Voiding Method Toilet # Voids 2 - Exam General: [Patient awake, alert not oriented to place or time only to person. Patient in no acute distress.] HEENT: [PERRL. EOMI. No pharyngeal erythema or exudate.] Neck: [No adenopathy.] Cardiac: [Heart regular in rate and rhythm. No S3. No S4. No clicks, rubs. No murmur.] Lungs: [Clear to auscultation bilaterally.] Abdomen: [No mass. No organomegaly. Bowel sounds presnt and normoactive in all 4 quadrants.] Extremes: [No edema no cyanosis no claudication normal pulses] : Normal female genitalia Musculoskeletal: [No joint erythema, edema or tenderness.] Skin: [No rash.] Neurologic: [No lateralizing deficits. CN II - XII grossly intact.] Lymphatic: [No adenopathy.] - Labs CBC & Chem 7: 01/29/23 22:50 01/29/23 22:50 Assessment and Plan (1) Altered mental status Current Visit: Yes Status: Acute Code(s): R41.82 - ALTERED MENTAL STATUS, UNSPECIFIED SNOMED Code(s): 767906919 (2) Dementia Current Visit: Yes Status: Acute Code(s): F03.90 - UNSP DEMENTIA, UNSP SEVERITY, WITHOUT BEH/PSYCH/MOOD/ANX SNOMED Code(s): 86561014 Plan: Continue IV antibiotics Urinary tract infection Altered mental state Dementia Requiring placement Time with Patient: Greater than 30
[2023-01-31] MEDS: MELATONIN 3 MG TABLET PO SCH (23:08)
[2023-01-31] MEDS: DONEPEZIL 10 MG TAB PO SCH (23:08)
[2023-02-01] MEDS: SODIUM CHLORIDE 0.9% 1,000 ML IV SCH (05:29)
--- NOTE | 2023-02-01 09:28 | P.PN ---
Subjective Progress Note Date: 01/31/23 Patient was seen for a follow-up. Patient was sleeping. Woke her up. Patient offers no complaints. No headache. Objective - Vital Signs Vital signs: Vital Signs Temp 98.5 F 01/31/23 07:46 Pulse 96 01/31/23 07:46 Resp 17 01/31/23 07:46 BP 121/73 01/31/23 07:46 Pulse Ox 96 01/31/23 07:46 FiO2 Intake & Output 01/30/23 01/31/23 01/31/23 18:59 06:59 18:59 Weight 72.575 kg Other: Voiding Method Toilet # Voids 2 - Exam Patient slightly more oriented. Patient states that she is in [place] in [place] in a medical building. Yesterday she was thinking she was in [place]. She still could not remember the month or the year. Speech and language functions are normal. Rest of the examination unchanged. - Labs CBC & Chem 7: 01/29/23 22:50 01/29/23 22:50 Assessment and Plan Assessment: * Altered mental status, likely due to mild metabolic encephalopathy due to acute UTI * Acute UTI * Dementia, at least moderate degree Plan: * Continue ceftriaxone 1 g daily for UTI. * Patient is currently on Aricept 5 mg daily. We will optimize the dose to 10 mg daily. * B12 400, folate 13.8, TSH 3.93. * utility maintenance worker consult for possible placement. * Neurologically, no other workup indicated. Neurology will sign off. Please reconsult if any other neurological concerns.
--- NOTE | 2023-02-01 10:52 | P.PN ---
Subjective Progress Note Date: 02/01/23 Principal diagnosis: Mental status change, dementia She is sleeping but arousable alert to person but not alert to place or time, otherwise pleasantly demented 82-year-old female well-known to my practice she seems to be significantly improved back to baseline mentally still unable to perform activities of daily living without supervision 02/01/2023 Patient is awake alert to person but not oriented to place or time, pleasantly demented, unable to perform activities of daily living without supervision, this patient will likely require rehab placement Objective - Vital Signs Vital signs: Vital Signs Temp 98.4 F 02/01/23 07:20 Pulse 102 H 02/01/23 07:20 Resp 18 02/01/23 07:20 BP 126/64 02/01/23 07:20 Pulse Ox 94 L 02/01/23 07:20 FiO2 Intake & Output 01/31/23 02/01/23 02/01/23 18:59 06:59 18:59 Intake Total 50 Balance 50 Intake: Intake, IV Titration 50 Amount cefTRIAXone 1 gm In 50 Sodium Chloride 0.9% 50 ml @ 100 mls/hr IVPB Q24HR [facility] Rx#:[id number] Other: Voiding Method Toilet # Voids 2 - Exam General: [Patient awake, alert not oriented to place or time only to person. Patient in no acute distress.] HEENT: [PERRL. EOMI. No pharyngeal erythema or exudate.] Neck: [No adenopathy.] Cardiac: [Heart regular in rate and rhythm. No S3. No S4. No clicks, rubs. No murmur.] Lungs: [Clear to auscultation bilaterally.] Abdomen: [No mass. No organomegaly. Bowel sounds presnt and normoactive in all 4 quadrants.] Extremes: [No edema no cyanosis no claudication normal pulses] : Normal female genitalia Musculoskeletal: [No joint erythema, edema or tenderness.] Skin: [No rash.] Neurologic: [No lateralizing deficits. CN II - XII grossly intact.] Lymphatic: [No adenopathy.] - Labs CBC & Chem 7: 01/29/23 22:50 01/29/23 22:50 Assessment and Plan (1) Altered mental status Current Visit: Yes Status: Acute Code(s): R41.82 - ALTERED MENTAL STATUS, UNSPECIFIED SNOMED Code(s): 878891115 (2) Dementia Current Visit: Yes Status: Acute Code(s): F03.90 - UNSP DEMENTIA, UNSP SEVERITY, WITHOUT BEH/PSYCH/MOOD/ANX SNOMED Code(s): 63951990 Plan: Continue IV antibiotics Urinary tract infection Altered mental state Dementia Requiring placement Time with Patient: Greater than 30
[2023-02-01 11:35] LABS: Anisocytosis Slight; Basophils % (A) 1 %; Eosinophils # (A) 0.3 k/uL (0-0.7); Eosinophils % (A) 4 %; HCT 32.4 % (34.0-46.0); HGB 9.4 gm/dL (11.4-16.0); Hypochromasia Marked; Lymphocytes # (A) 1.7 k/uL (1.0-4.8); Lymphocytes % (A) 21 %; MCH 19.3 pg (25.0-35.0); MCHC 28.9 g/dL (31.0-37.0); MCV 66.9 fL (80.0-100.0); Mean Platelet Volume 6.6; Microcytosis Marked; Monocytes # (A) 0.6 k/uL (0-1.0); Monocytes % (A) 8 %; Neutrophils # (A) 5.2 k/uL (1.3-7.7); Neutrophils % (A) 65 %; Platelet Count 381 k/uL (150-450); RBC 4.84 m/uL (3.80-5.40); WBC 7.9 k/uL (3.8-10.6)
[2023-02-01 11:46] LABS: ALT 15 U/L (4-34); AST 28 U/L (14-36); African American GFR (CKD) 84 (>60 ml/min/1.73 sqM); Albumin 3.8 g/dL (3.5-5.0); Albumin/Globulin Ratio 1.3; Alkaline Phosphatase 76 U/L (38-126); Anion Gap 9 mmol/L; Blood Urea Nitrogen 16 mg/dL (7-17); Calcium 8.8 mg/dL (8.4-10.2); Carbon Dioxide 25 mmol/L (22-30); Chloride 101 mmol/L (98-107); Glucose 95 mg/dL (74-99); Non-African American GFR(CKD) 73 (>60 ml/min/1.73 sqM); Sodium 135 mmol/L (137-145); Total Bilirubin 0.6 mg/dL (0.2-1.3); Total Protein 6.8 g/dL (6.3-8.2)
[2023-02-01 11:59] LABS: Potassium 4.6 mmol/L (3.5-5.1)
[2023-02-01] MEDS: DONEPEZIL 10 MG TAB PO SCH (21:31)
[2023-02-01] MEDS: MELATONIN 3 MG TABLET PO SCH (21:32)
[2023-02-02] MEDS: SODIUM CHLORIDE 0.9% 1,000 ML IV SCH (06:16)
[2023-02-02] MEDS ORDERED: ACETAMINOPHEN TAB 325 MG TAB PO PRN (13:30)
--- NOTE | 2023-02-02 13:37 | P.PN ---
Subjective Progress Note Date: 02/02/23 01/30/23 Chief Complaint: Altered mental status This is an 82-year-old female well-known to my practice who presents the emergency room with altered mental status, patient has been showing evidence of short-term memory loss and symptoms of dementia over the last approximately 8 m onths which seems to becoming progressively worse. She was started on Aricept and Namenda, which has appeared to sepsis slowed down the process but it is progress patient started developing significant memory loss and confusion and her daughter brought her into the emergency room it appears that she had a urinary tract infection as well 01/31/23 She is sleeping but arousable alert to person but not alert to place or time, otherwise pleasantly demented 82-year-old female well-known to my practice she seems to be significantly improved back to baseline mentally still unable to perform activities of daily living without supervision 02/01/2023 Patient is awake alert to person but not oriented to place or time, pleasantly demented, unable to perform activities of daily living without supervision, this patient will likely require rehab placement 02/02 sitting up in chair, complaining of mild headache. Denies chest pain, palpitations or shortness of breath. Afebrile. Maintained on Rocephin for acute UTI. Objective - Vital Signs Vital signs: Vital Signs Temp 97.9 F 02/02/23 07:25 Pulse 77 02/02/23 07:25 Resp 14 02/02/23 07:25 BP 135/78 02/02/23 07:25 Pulse Ox 97 02/02/23 07:25 FiO2 Intake & Output 02/01/23 02/02/23 02/02/23 18:59 06:59 18:59 Intake Total 50 200 Balance 50 200 Intake: Intake, IV Titration 50 Amount cefTRIAXone 1 gm In 50 Sodium Chloride 0.9% 50 ml @ 100 mls/hr IVPB Q24HR [facility] Rx#:[id number] Oral 200 Other: Voiding Method Toilet # Voids 1 # Bowel Movements 1 - Exam - Exam General: [Patient sitting up in chair, awake, alert not oriented to person. no acute distress.] HEENT: [PERRL. EOMI. Cardiac: [Heart regular in rate and rhythm. No S3. No S4. No clicks, rubs. No murmur.] Lungs: Unlabored, coarse bilaterally] Abdomen: [No mass. No organomegaly. Bowel sounds presnt and normoactive in all 4 quadrants.] Extremes: [No edema no cyanosis no claudication normal pulses] Skin: [No rash, warm and dry Neurologic: CN II - XII grossly intact.] - Labs CBC & Chem 7: 02/01/23 11:10 02/01/23 11:10 Assessment and Plan Assessment: (1) Altered mental status Current Visit: Yes Status: Acute Code(s): R41.82 - ALTERED MENTAL STATUS, UNSPECIFIED SNOMED Code(s): 595042916 (2) Dementia Current Visit: Yes Status: Acute Code(s): F03.90 - UNSP DEMENTIA, UNSP SEVERITY, WITHOUT BEH/PSYCH/MOOD/ANX SNOMED Code(s): 45545504 (3) acute UTI Plan: Continue on current medication regime ,monitoring and symptomatic treatment. Maintain IV antibiotics, gentle IV fluid hydration. PT/OT. Discharge planning in progress for subacute rehab. The impression and plan of care has been dictated as directed. : I performed a history and examination of this patient, discussed the same with the dictator. I agree with the dictator's note ,documented as a scribe. Any additional findings or plans will be noted.
[2023-02-03] MEDS: MELATONIN 3 MG TABLET PO SCH ×2 (00:52→19:55)
[2023-02-03] MEDS: DONEPEZIL 10 MG TAB PO SCH ×2 (00:52→19:55)
[2023-02-03] MEDS: SODIUM CHLORIDE 0.9% 1,000 ML IV SCH (06:53)
--- NOTE | 2023-02-03 10:28 | P.PN ---
Subjective Progress Note Date: 02/03/23 01/30/23 Chief Complaint: Altered mental status This is an 82-year-old female well-known to my practice who presents the emergency room with altered mental status, patient has been showing evidence of short-term memory loss and symptoms of dementia over the last approximately 8 m ont which seems to becoming progressively worse. She was started on Aricept and Namenda, which has appeared to sepsis slowed down the process but it is progress patient started developing significant memory loss and confusion and her daughter brought her into the emergency room it appears that she had a urinary tract infection as well 01/31/23 She is sleeping but arousable alert to person but not alert to place or time, otherwise pleasantly demented 82-year-old female well-known to my practice she seems to be significantly improved back to baseline mentally still unable to perform activities of daily living without supervision 02/01/2023 Patient is awake alert to person but not oriented to place or time, pleasantly demented, unable to perform activities of daily living without supervision, this patient will likely require rehab placement 02/02/23 sitting up in chair, complaining of mild headache. Denies chest pain, palpitations or shortness of breath. Afebrile. Maintained on Rocephin for acute UTI. 02/03/2023 no overnight events. Maintained on gentle IV fluid hydration, antibiotics .Headache resolved. Vital signs stable, afebrile, maintaining O2 sats in the 90s on room air. Discharge planning in progress, placement pending. Objective - Vital Signs Vital signs: Vital Signs Temp 97.8 F 02/03/23 09:45 Pulse 74 02/03/23 09:45 Resp 18 02/03/23 09:45 BP 114/52 02/03/23 09:45 Pulse Ox 93 L 02/03/23 09:45 FiO2 Intake & Output 02/02/23 02/03/23 02/03/23 18:59 06:59 18:59 Intake Total 50 Balance 50 Intake: Intake, IV Titration 50 Amount cefTRIAXone 1 gm In 50 Sodium Chloride 0.9% 50 ml @ 100 mls/hr IVPB Q24HR [facility] Rx#:[id number] Other: Voiding Method Toilet Toilet # Voids 1 - Exam - Exam General: [Patient sitting up in chair, awake, alert not oriented to person. no acute distress.] HEENT: [PERRL. EOMI. Cardiac: [Heart regular in rate and rhythm. No murmur.] Lungs: Unlabored, coarse bilaterally] Abdomen: [Soft, nondistended, nontender , no guarding, no rigidity. Positive bowel sound Extremes: [No edema no cyanosis, normal pulses] Skin: [No rash, warm and dry Neurologic: CN II - XII grossly intact.] - Labs CBC & Chem 7: 02/01/23 11:10 02/01/23 11:10 Assessment and Plan Assessment: (1) Altered mental status Current Visit: Yes Status: Acute Code(s): R41.82 - ALTERED MENTAL STATUS, UNSPECIFIED SNOMED Code(s): 293638771 (2) Dementia Current Visit: Yes Status: Acute Code(s): F03.90 - UNSP DEMENTIA, UNSP SEVERITY, WITHOUT BEH/PSYCH/MOOD/ANX SNOMED Code(s): 82826047 (3) acute UTI Plan: Continue on current medication regime ,monitoring and symptomatic treatment. Maintain IV antibiotics, gentle IV fluid hydration. PT/OT. Medically cleared for discharge. Discharge planning in progress for subacute rehab. The impression and plan of care has been dictated as directed. : I performed a history and examination of this patient, discussed the same with the dictator. I agree with the dictator's note ,documented as a scribe. Any additional findings or plans will be noted.
[2023-02-04] MEDS: SODIUM CHLORIDE 0.9% 1,000 ML IV SCH (05:52)
--- NOTE | 2023-02-04 13:46 | P.PN ---
Subjective Progress Note Date: 02/04/23 01/30/23 Chief Complaint: Altered mental status This is an 82-year-old female well-known to my practice who presents the emergency room with altered mental status, patient has been showing evidence of short-term memory loss and symptoms of dementia over the last approximately 8 m ont which seems to becoming progressively worse. She was started on Aricept and Namenda, which has appeared to sepsis slowed down the process but it is progress patient started developing significant memory loss and confusion and her daughter brought her into the emergency room it appears that she had a urinary tract infection as well 01/31/23 She is sleeping but arousable alert to person but not alert to place or time, otherwise pleasantly demented 82-year-old female well-known to my practice she seems to be significantly improved back to baseline mentally still unable to perform activities of daily living without supervision 02/01/2023 Patient is awake alert to person but not oriented to place or time, pleasantly demented, unable to perform activities of daily living without supervision, this patient will likely require rehab placement 02/02/23 sitting up in chair, complaining of mild headache. Denies chest pain, palpitations or shortness of breath. Afebrile. Maintained on Rocephin for acute UTI. 02/03/2023 no overnight events. Maintained on gentle IV fluid hydration, antibiotics .Headache resolved. Vital signs stable, afebrile, maintaining O2 sats in the 90s on room air. Discharge planning in progress, placement pending. 02/04/2023 medically cleared for discharge. Denies chest pain, palpitations or shortness of breath. Vital signs stable. Objective - Vital Signs Vital signs: Vital Signs Temp 98.1 F 02/04/23 11:04 Pulse 74 02/04/23 11:04 Resp 16 02/04/23 11:04 BP 109/71 02/04/23 11:04 Pulse Ox 94 L 02/04/23 11:04 FiO2 Intake & Output 02/03/23 02/04/23 02/04/23 18:59 06:59 18:59 Intake Total 168 Balance 168 Weight 71.4 kg Intake: Intake, IV Titration 50 Amount cefTRIAXone 1 gm In 50 Sodium Chloride 0.9% 50 ml @ 100 mls/hr IVPB Q24HR [facility] Rx#:[id number] Oral 118 Other: Voiding Method Toilet Toilet Toilet # Voids 3 2 # Bowel Movements 1 - Exam - Exam General: [Patient sitting up in bed awake, alert not oriented to person. no acute distress.] HEENT: [Normal cephalic, PERRL. EOMI. Cardiac: [Heart regular in rate and rhythm. No murmur.] Lungs: Unlabored, coarse bilaterally] Abdomen: [Soft, nondistended, nontender , no guarding, no rigidity. Positive bowel sound Extremes: [No edema no cyanosis, normal pulses] Skin: [No rash, warm and dry Neurologic: CN II - XII grossly intact.] - Labs CBC & Chem 7: 02/01/23 11:10 02/01/23 11:10 Assessment and Plan Assessment: (1) Altered mental status Current Visit: Yes Status: Acute Code(s): R41.82 - ALTERED MENTAL STATUS, UNSPECIFIED SNOMED Code(s): 429760964 (2) Dementia Current Visit: Yes Status: Acute Code(s): F03.90 - UNSP DEMENTIA, UNSP SEVERITY, WITHOUT BEH/PSYCH/MOOD/ANX SNOMED Code(s): 94239252 (3) acute UTI Plan: Continue on current medication regime ,monitoring and symptomatic treatment. Continue antibiotics. PT/OT. Medically cleared for discharge. Discharge planning in progress for subacute rehab. The impression and plan of care has been dictated as directed. : I performed a history and examination of this patient, discussed the same with the dictator. I agree with the dictator's note ,documented as a scribe. Any additional findings or plans will be noted.
[2023-02-04] MEDS: PANTOPRAZOLE 40 MG TABLET PO SCH (16:27)
[2023-02-04] MEDS: DONEPEZIL 10 MG TAB PO SCH (20:14)
[2023-02-04] MEDS: MELATONIN 3 MG TABLET PO SCH (20:14)
[2023-02-05] MEDS: PANTOPRAZOLE 40 MG TABLET PO SCH (07:23)
--- NOTE | 2023-02-05 10:44 | P.PN ---
Subjective Progress Note Date: 02/05/23 01/30/23 Chief Complaint: Altered mental status This is an 82-year-old female well-known to my practice who presents the emergency room with altered mental status, patient has been showing evidence of short-term memory loss and symptoms of dementia over the last approximately 8 m ont which seems to becoming progressively worse. She was started on Aricept and Namenda, which has appeared to sepsis slowed down the process but it is progress patient started developing significant memory loss and confusion and her daughter brought her into the emergency room it appears that she had a urinary tract infection as well 01/31/23 She is sleeping but arousable alert to person but not alert to place or time, otherwise pleasantly demented 82-year-old female well-known to my practice she seems to be significantly improved back to baseline mentally still unable to perform activities of daily living without supervision 02/01/2023 Patient is awake alert to person but not oriented to place or time, pleasantly demented, unable to perform activities of daily living without supervision, this patient will likely require rehab placement 02/02/23 sitting up in chair, complaining of mild headache. Denies chest pain, palpitations or shortness of breath. Afebrile. Maintained on Rocephin for acute UTI. 02/03/2023 no overnight events. Maintained on gentle IV fluid hydration, antibiotics .Headache resolved. Vital signs stable, afebrile, maintaining O2 sats in the 90s on room air. Discharge planning in progress, placement pending. 02/04/2023 medically cleared for discharge. Denies chest pain, palpitations or shortness of breath. Vital signs stable. 02/05/2023 no overnight events. Fluctuating of systolic blood pressure from 109 to 160s. Denies chest pain, palpitations or shortness of breath. Denies lightheadedness, dizziness or focal deficits. Denies headache. Awaiting placement. Objective - Vital Signs Vital signs: Vital Signs Temp 98.4 F 02/05/23 07:31 Pulse 68 02/05/23 07:31 Resp 16 02/05/23 07:31 BP 164/63 02/05/23 07:31 Pulse Ox 96 02/05/23 07:31 FiO2 Intake & Output 02/04/23 02/05/23 02/05/23 18:59 06:59 18:59 Intake Total 1000 Balance 1000 Weight 71.8 kg Intake: Oral 1000 Other: Voiding Method Toilet Toilet # Voids 2 - Exam - Exam General: [Patient lying in bed awake, alert, oriented to person. no acute distress.] HEENT: [Normal cephalic, PERRL. EOMI.MMM. Cardiac: [Heart regular in rate and rhythm. No murmur.] Lungs: Unlabored, coarse bilaterally] Abdomen: [Soft, nondistended, nontender , no guarding, no rigidity. Positive bowel sound Extremes: [No edema no cyanosis, normal pulses] Skin: [No rash, warm and dry Neurologic: CN II - XII grossly intact.] - Labs CBC & Chem 7: 02/01/23 11:10 02/01/23 11:10 Assessment and Plan Assessment: (1) Altered mental status Current Visit: Yes Status: Acute Code(s): R41.82 - ALTERED MENTAL STATUS, UNSPECIFIED SNOMED Code(s): 340302162 (2) Dementia Current Visit: Yes Status: Acute Code(s): F03.90 - UNSP DEMENTIA, UNSP SEVERITY, WITHOUT BEH/PSYCH/MOOD/ANX SNOMED Code(s): 73758057 (3) acute UTI Plan: Continue on current medication regime ,monitoring and symptomatic treatment. Continue monitoring of blood pressure with no adjustment in medication regimen at this time. Maintain antibiotics. PT/OT. Medically cleared for discharge, discussed with case assembler. Discharge planning in progress pending placement. The impression and plan of care has been dictated as directed. : I performed a history and examination of this patient, discussed the same with the dictator. I agree with the dictator's note ,documented as a scribe. Any additional findings or plans will be noted.
[2023-02-05] MEDS: DONEPEZIL 10 MG TAB PO SCH (21:15)
[2023-02-05] MEDS: MELATONIN 3 MG TABLET PO SCH (21:15)
[2023-02-06] MEDS: PANTOPRAZOLE 40 MG TABLET PO SCH (09:28)
[2023-02-06 10:27] VITALS: BMI 25.5
--- NOTE | 2023-02-06 13:06 | P.PN ---
Subjective Progress Note Date: 02/06/23 01/30/23 Chief Complaint: Altered mental status This is an 82-year-old female well-known to my practice who presents the emergency room with altered mental status, patient has been showing evidence of short-term memory loss and symptoms of dementia over the last approximately 8 m ont which seems to becoming progressively worse. She was started on Aricept and Namenda, which has appeared to sepsis slowed down the process but it is progress patient started developing significant memory loss and confusion and her daughter brought her into the emergency room it appears that she had a urinary tract infection as well 01/31/23 She is sleeping but arousable alert to person but not alert to place or time, otherwise pleasantly demented 82-year-old female well-known to my practice she seems to be significantly improved back to baseline mentally still unable to perform activities of daily living without supervision 02/01/2023 Patient is awake alert to person but not oriented to place or time, pleasantly demented, unable to perform activities of daily living without supervision, this patient will likely require rehab placement 02/02/23 sitting up in chair, complaining of mild headache. Denies chest pain, palpitations or shortness of breath. Afebrile. Maintained on Rocephin for acute UTI. 02/03/2023 no overnight events. Maintained on gentle IV fluid hydration, antibiotics .Headache resolved. Vital signs stable, afebrile, maintaining O2 sats in the 90s on room air. Discharge planning in progress, placement pending. 02/04/2023 medically cleared for discharge. Denies chest pain, palpitations or shortness of breath. Vital signs stable. 02/05/2023 no overnight events. Fluctuating of systolic blood pressure from 109 to 160s. Denies chest pain, palpitations or shortness of breath. Denies lightheadedness, dizziness or focal deficits. Denies headache. Awaiting placement. 02/06/2023 blood pressures controlled. Denies chest pain, palpitations or shortness of breath. Medically cleared for discharge. Objective - Vital Signs Vital signs: Vital Signs Temp 98.1 F 02/06/23 07:50 Pulse 95 02/06/23 08:40 Resp 18 02/06/23 08:40 BP 129/64 02/06/23 07:50 Pulse Ox 98 02/05/23 20:00 FiO2 Intake & Output 02/05/23 02/06/23 02/06/23 18:59 06:59 18:59 Intake Total 50 200 Balance 50 200 Weight 71.8 kg Intake: Intake, IV Titration 50 Amount cefTRIAXone 1 gm In 50 Sodium Chloride 0.9% 50 ml @ 100 mls/hr IVPB Q24HR [facility] Rx#:[id number] Oral 200 Other: Voiding Method Toilet Toilet # Voids 2 - Exam - Exam General: [Patient lying in bed awake, alert, oriented to person. no acute distress.] HEENT: [Normal cephalic, PERRL. EOMI.MMM. Cardiac: [Heart regular in rate and rhythm. No murmur.] Lungs: Unlabored, coarse bilaterally] Abdomen: [Soft, nondistended, nontender , no guarding, no rigidity. Positive bowel sound Extremes: [No edema no cyanosis, normal pulses] Skin: [No rash, warm and dry Neurologic: CN II - XII grossly intact.] - Labs CBC & Chem 7: 02/01/23 11:10 02/01/23 11:10 Assessment and Plan Assessment: (1) Altered mental status Current Visit: Yes Status: Acute Code(s): R41.82 - ALTERED MENTAL STATUS, UNSPECIFIED SNOMED Code(s): 738107286 (2) Dementia Current Visit: Yes Status: Acute Code(s): F03.90 - UNSP DEMENTIA, UNSP S [place], WITHOUT BEH/PSYCH/MOOD/ANX SNOMED Code(s): 84260781 (3) acute UTI Plan: Continue on current medication regime ,monitoring and symptomatic treatment. PT/OT. Medically cleared for discharge. Discharge planning in progress pending placement. The impression and plan of care has been dictated as directed. : I performed a history and examination of this patient, discussed the same with the dictator. I agree with the dictator's note ,documented as a scribe. Any additional findings or plans will be noted.
[2023-02-06] MEDS: MELATONIN 3 MG TABLET PO SCH (21:45)
[2023-02-06] MEDS: DONEPEZIL 10 MG TAB PO SCH (21:45)
[2023-02-07] MEDS: PANTOPRAZOLE 40 MG TABLET PO SCH (08:50)
--- NOTE | 2023-02-07 14:00 | P.PN ---
Subjective 01/30/23 This is an 82-year-old female well-known to my practice who presents the emergency room with altered mental status, patient has been showing evidence of short-term memory loss and symptoms of dementia over the last approximately 8 months which seems to becoming progressively worse. She was started on Aricept and Namenda, which has appeared to sepsis slowed down the process but it is progress patient started developing significant memory loss and confusion and her daughter brought her into the emergency room it appears that she had a urinary tract infection as well 01/31/23 She is sleeping but arousable alert to person but not alert to place or time, otherwise pleasantly demented 82-year-old female well-known to my practice she seems to be significantly improved back to baseline mentally still unable to perform activities of daily living without supervision 02/01/2023 Patient is awake alert to person but not oriented to place or time, pleasantly demented, unable to perform activities of daily living without supervision, this patient will likely require rehab placement 02/02/23 sitting up in chair, complaining of mild headache. Denies chest pain, palpitations or shortness of breath. Afebrile. Maintained on Rocephin for acute UTI. 02/03/2023 no overnight events. Maintained on gentle IV fluid hydration, antibi otics .Headache resolved. Vital signs stable, afebrile, maintaining O2 sats in the 90s on room air. Discharge planning in progress, placement pending. 02/04/2023 medically cleared for discharge. Denies chest pain, palpitations or shortness of breath. Vital signs stable. 02/05/2023 no overnight events. Fluctuating of systolic blood pressure from 109 to 160s. Denies chest pain, palpitations or shortness of breath. Denies lightheadedness, dizziness or focal deficits. Denies headache. Awaiting placement. 02/06/2023 blood pressures controlled. Denies chest pain, palpitations or shor tness of breath. Medically cleared for discharge. 02/07/2023: Patient remained stable. She is cleared for discharge, waiting on placement. Patient has no complaints Objective - Vital Signs Vital signs: Vital Signs Temp 97.5 F L 02/07/23 11:10 Pulse 78 02/07/23 11:10 Resp 16 02/07/23 11:10 BP 154/67 02/07/23 11:10 Pulse Ox 95 02/07/23 11:10 FiO2 Intake & Output 02/06/23 02/07/23 02/07/23 18:59 06:59 18:59 Intake Total 240 Balance 240 Weight 71.8 kg Intake: Oral 240 Other: Voiding Method Toilet Toilet # Voids 3 1 # Bowel Movements 1 0 - Exam General: Patient lying in bed awake, alert, oriented to person. no acute distress. Neck: Supple no thyromegaly or lymphadenopathy Cardiac: Heart regular in rate and rhythm. No murmur. Lungs: Slightly coarse throughout is clear to auscultation Abdomen: Soft, nondistended, nontender , no guarding, no rigidity. Normal bowel sounds Extremes: No edema no cyanosis, normal pulses Skin: No rash, warm and dry Neurologic: CN II - XII grossly intact. - Labs CBC & Chem 7: 02/01/23 11:10 02/01/23 11:10 Assessment and Plan (1) Altered mental status Current Visit: Yes Status: Acute Code(s): R41.82 - ALTERED MENTAL STATUS, UNSPECIFIED SNOMED Code(s): 452262557 (2) Dementia Current Visit: Yes Status: Acute Code(s): F03.90 - UNSP DEMENTIA, UNSP SEVERITY, WITHOUT BEH/PSYCH/MOOD/ANX SNOMED Code(s): 50404378 (3) UTI (urinary tract infection) Current Visit: Yes Status: Acute Code(s): N39.0 - URINARY TRACT INFECTION, SITE NOT SPECIFIED SNOMED Code(s): 63208682 Plan: waiting on placement for her. She is medically stable at this time.
[2023-02-07] MEDS: DONEPEZIL 10 MG TAB PO SCH (20:29)
[2023-02-07] MEDS: MELATONIN 3 MG TABLET PO SCH (20:29)
[2023-02-08] MEDS: PANTOPRAZOLE 40 MG TABLET PO SCH (09:01)
--- NOTE | 2023-02-08 11:39 | P.PN ---
Subjective 01/30/23 This is an 82-year-old female well-known to my practice who presents the emergency room with altered mental status, patient has been showing evidence of short-term memory loss and symptoms of dementia over the last approximately 8 months which seems to becoming progressively worse. She was started on Aricept and Namenda, which has appeared to sepsis slowed down the process but it is progress patient started developing significant memory loss and confusion and her daughter brought her into the emergency room it appears that she had a urinary tract infection as well 01/31/23 She is sleeping but arousable alert to person but not alert to place or time, otherwise pleasantly demented 82-year-old female well-known to my practice she seems to be significantly improved back to baseline mentally still unable to perform activities of daily living without supervision 02/01/2023 Patient is awake alert to person but not oriented to place or time, pleasantly demented, unable to perform activities of daily living without supervision, this patient will likely require rehab placement 02/02/23 sitting up in chair, complaining of mild headache. Denies chest pain, palpitations or shortness of breath. Afebrile. Maintained on Rocephin for acute UTI. 02/03/2023 no overnight events. Maintained on gentle IV fluid hydration, antibi otics .Headache resolved. Vital signs stable, afebrile, maintaining O2 sats in the 90s on room air. Discharge planning in progress, placement pending. 02/04/2023 medically cleared for discharge. Denies chest pain, palpitations or shortness of breath. Vital signs stable. 02/05/2023 no overnight events. Fluctuating of systolic blood pressure from 109 to 160s. Denies chest pain, palpitations or shortness of breath. Denies lightheadedness, dizziness or focal deficits. Denies headache. Awaiting placement. 02/06/2023 blood pressures controlled. Denies chest pain, palpitations or shor tness of breath. Medically cleared for discharge. 02/07/2023: Patient remained stable. She is cleared for discharge, waiting on placement. Patient has no complaints 02/08/2023: Patient is awake today, no complaints Objective - Vital Signs Vital signs: Vital Signs Temp 98.4 F 02/08/23 11:15 Pulse 75 02/08/23 11:15 Resp 16 02/08/23 11:15 BP 126/62 02/08/23 11:15 Pulse Ox 95 02/08/23 11:15 FiO2 Intake & Output 02/07/23 02/08/23 02/08/23 18:59 06:59 18:59 Intake Total 50 Balance 50 Intake: Intake, IV Titration 50 Amount cefTRIAXone 1 gm In 50 Sodium Chloride 0.9% 50 ml @ 100 mls/hr IVPB Q24HR [facility] Rx#:[id number] Other: Voiding Method Toilet # Voids 1 # Bowel Movements 0 - Exam General: Patient lying in bed awake, alert, oriented to person. no acute distress. Neck: Supple no thyromegaly or lymphadenopathy Cardiac: Heart regular in rate and rhythm. No murmur. Lungs: Slightly coarse throughout is clear to auscultation Abdomen: Soft, nondistended, nontender , no guarding, no rigidity. Normal bowel sounds Extremes: No edema no cyanosis, normal pulses Skin: No rash, warm and dry Neurologic: CN II - XII grossly intact. - Labs CBC & Chem 7: 02/01/23 11:10 02/01/23 11:10 Assessment and Plan (1) Altered mental status Current Visit: Yes Status: Acute Code(s): R41.82 - ALTERED MENTAL STATUS, UNSPECIFIED SNOMED Code(s): 556948981 (2) Dementia Current Visit: Yes Status: Acute Code(s): F03.90 - UNSP DEMENTIA, UNSP SEVERITY, WITHOUT BEH/PSYCH/MOOD/ANX SNOMED Code(s): 62519195 (3) UTI (urinary tract infection) Current Visit: Yes Status: Acute Code(s): N39.0 - URINARY TRACT INFECTION, SITE NOT SPECIFIED SNOMED Code(s): 98999505 Plan: Continue waiting on placement for her. She is medically stable at this time.
[2023-02-08] MEDS: MELATONIN 3 MG TABLET PO SCH (20:28)
[2023-02-08] MEDS: DONEPEZIL 10 MG TAB PO SCH (20:28)
[2023-02-09] MEDS: PANTOPRAZOLE 40 MG TABLET PO SCH (10:58)
--- NOTE | 2023-02-09 12:48 | P.DS ---
Providers Date of admission: 01/30/23 03:40 Expected date of discharge: 02/09/23 Attending physician: Nikko De La Rosa Consults: 01/30/23 13:57 Consult Physician Routine Consulting Provider: Evans Bland Consult Reason/Comments: AMS Do you want consulting provider notified?: Yes Primary care physician: [facility] Course: Final Diagnoses: (1) Altered mental status Current Visit: Yes Status: Acute Code(s): R41.82 - ALTERED MENTAL STATUS, UNSPECIFIED SNOMED Code(s): 046408462 (2) Dementia Current Visit: Yes Status: Acute Code(s): F03.90 - UNSP DEMENTIA, UNSP SEVERITY, WITHOUT BEH/PSYCH/MOOD/ANX SNOMED Code(s): 00003378 (3) UTI (urinary tract infection), completed antibiotic treatment. Current Visit: Yes Status: Acute Code(s): N39.0 - URINARY TRACT INFECTION, SITE NOT SPECIFIED SNOMED Code(s): 27675574 Hospital course:This is an 82-year-old female well-known to my practice who presents the emergency room with altered mental status, patient has been showing evidence of short-term memory loss and symptoms of dementia over the last approximately 8 months which seems to becoming progressively worse. She was started on Aricept and Namenda, which has appeared to sepsis slowed down the p rocess but it is progress patient started developing significant memory loss and confusion and her daughter brought her into the emergency room it appears that she had a urinary tract infection as well 01/31/23 She is sleeping but arousable alert to person but not alert to place or time, otherwise pleasantly demented 82-year-old female well-known to my practice she seems to be significantly improved back to baseline mentally still unable to perform activities of daily living without supervision 02/01/2023 Patient is awake alert to person but not oriented to place or time, pleasantly demented, unable to perform activities of daily living without supervision, this patient will likely require rehab placement 02/02/23 sitting up in chair, complaining of mild headache. Denies chest pain, palpitations or shortness of breath. Afebrile. Maintained on Rocephin for acute UTI. 02/03/2023 no overnight events. Maintained on gentle IV fluid hydration, antibiotics .Headache resolved. Vital signs stable, afebrile, maintaining O2 sats in the 90s on room air. Discharge planning in progress, placement pending. 02/04/2023 medically cleared for discharge. Denies chest pain, palpitations or shortness of breath. Vital signs stable. 02/05/2023 no overnight events. Fluctuating of systolic blood pressure from 109 to 160s. Denies chest pain, palpitations or shortness of breath. Denies lightheadedness, dizziness or focal deficits. Denies headache. Awaiting placement. 02/06/2023 blood pressures controlled. Denies chest pain, palpitations or shortness of breath. Medically cleared for discharge. 02/07/2023: Patient remained stable. She is cleared for discharge, waiting on placement. Patient has no complaints 02/08/2023: Patient is awake today, no complaints Remains medically stable for discharge .No overnight events. Vital signs stable. Denies chest pain, palpitations or shortness of breath. Patient will be discharged today to subacute rehab in a stable condition with guarded prognosis. The impression and plan of care has been dictated as directed. : I performed a history and examination of this patient, discussed the same with the dictator. I agree with the dictator's note ,documented as a scribe. Any additional findings or plans will be noted. Patient Condition at Discharge: Stable Plan - Discharge Summary Discharge Rx Participant: No New Discharge Prescriptions: New Melatonin 3 mg PO HS tab Continue Donepezil [Aricept] 5 mg PO HS Discharge Medication List Donepezil [Aricept] 5 mg PO HS 01/30/23 [History] Melatonin 3 mg PO HS tab 02/09/23 [Rx] Follow up Appointment(s)/Referral(s): Nikko De La Rosa Jr, DO [Primary Care Provider] - 1 Week (After DC from subacute rehab)
[2023-02-09 13:17] VITALS: BP 108/64; PULSE 64; RESP 16; TEMP 98.2
== END 2023-02-09 15:48 | DRG 689 ==
LOC: EC 22:12 → 5NMEDONC 01-30 03:40
PROVIDERS: ADMIT Family Medicine; ATTEND Family Medicine
DX: N39.0 Urinary tract infection, site not specified (principal); G93.41 Metabolic encephalopathy; F03.94 Unspecified dementia, unspecified severity, with anxiety; F41.9 Anxiety disorder, unspecified; Z87.891 Personal history of nicotine dependence; Z60.2 Problems related to living alone; Z79.899 Other long term (current) drug therapy
CPT/HCPCS: 36415; 70450; 80048; 80053; 81001; 82607; 82746; 84443; 85025; 96374; 99285

== ENCOUNTER 2023-05-26 02:18 | Inpatient (IN) | payer MEDICARE ==
--- NOTE | 2023-05-26 02:49 | ED ---
Fall HPI - General Chief Complaint: Fall Stated Complaint: Fall Time Seen by Provider: 05/26/23 02:20 Source: patient, EMS, RN notes reviewed Mode of arrival: EMS Limitations: physical limitation - History of Present Illness Initial Comments: 82-year-old female presents emergency Department from [facility] for a fall. Patient is unsure if she struck her head she believes she did not but there was reports she did. Patient went to right hip pain. Patient denies chest pain shortness breath back pain or any other extremity injuries. - Related Data Home Medications Medication Instructions Recorded Confirmed Donepezil [Aricept] 5 mg PO HS 01/30/23 01/30/23 Previous Rx's Medication Instructions Recorded Melatonin 3 mg PO HS tab 02/09/23 Allergies Allergy/AdvReac Type Severity Reaction Status Date / Time No Known Allergies Allergy Verified 01/30/23 09:28 Review of Systems ROS Statement: Those systems with pertinent positive or pertinent negative responses have been documented in the HPI. ROS Other: All systems not noted in ROS Statement are negative. Past Medical History Past Medical History: No Reported History History of Any Multi-Drug Resistant Organisms: None Reported Additional Past Surgical History / Comment(s): neck surgery Past Psychological History: No Psychological Hx Reported Smoking Status: Former smoker Past Alcohol Use History: None Reported Past Drug Use History: None Reported General Exam Limitations: altered mental status, physical limitation General appearance: alert, in no apparent distress Head exam: Present: atraumatic, normocephalic, normal inspection Eye exam: Present: normal appearance, PERRL, EOMI. Absent: scleral icterus, conjunctival injection, periorbital swelling ENT exam: Present: normal exam, mucous membranes moist Neck exam: Present: normal inspection. Absent: tenderness, meningismus, full ROM (Patient in c-collar), lymphadenopathy Respiratory exam: Present: normal lung sounds bilaterally. Absent: respiratory distress, wheezes, rales, rhonchi, stridor Cardiovascular Exam: Present: regular rate, normal rhythm, normal heart sounds. Absent: systolic murmur, diastolic murmur, rubs, gallop, clicks GI/Abdominal exam: Present: soft, normal bowel sounds. Absent: distended, tenderness, guarding, rebound, rigid Extremities exam: Present: other (Right hip tenderness, neurovascular intact) Neurological exam: Present: alert Course Vital Signs 05/26/23 02:22 Temperature 97.7 F Pulse Rate 79 Respiratory 18 Rate Blood Pressure 153/83 O2 Sat by Pulse 96 Oximetry Medical Decision Making - Medical Decision Making Was pt. sent in by a medical professional or institution ([facility], OUTPATIENT CODER, urgent care, hospital, or fpc...) When possible be specific @ -[place] Did you speak to anyone other than the patient for history (EMS, parent, family, police, friend...)? What history was obtained from this source @ -No Did you review nursing and triage notes (agree or disagree)? Why? @ -I reviewed and agree with nursing and triage notes Were old charts reviewed (outside hosp., previous admission, EMS record, old EKG, old radiological studies, urgent care reports/EKG's, fpc records)? Report findings @ -No old charts were reviewed Differential Diagnosis (chest pain, altered mental status, abdominal pain women, abdominal pain men, vaginal bleeding, weakness, fever, dyspnea, syncope, headache, dizziness, GI bleed, back pain, seizure, CVA, palpatations, mental health, musculoskeletal)? @ -Fall, hip fracture, hip contusion, closed head injury EKG interpreted by me (3pts min.). @ -As above X-rays interpreted by me (1pt min.). @ -Chest x-ray shows no acute process, right hip x-ray with AP pelvis showing right hip fracture CT interpreted by me (1pt min.). @ -None done U/S interpreted by me (1pt. min.). @ -None done What testing was considered but not performed or refused? (CT, X-rays, U/S, labs)? Why? @ -None What meds were considered but not given or refused? Why? @ -None Did you discuss the management of the patient with other professionals (professionals i.e. [facility], OUTPATIENT CODER, lab, RT, psych nurse, high school social science teacher, radiopharmacist, teacher, chief data officer, community case manager)? Give summary @ -Orthopedics for admission Was smoking cessation discussed for >3mins.? @ -No Was critical care preformed (if so, how long)? @ -No Were there social determinants of health that impacted care today? How? (Homelessness, low income, unemployed, alcoholism, drug addiction, transportat ion, low edu. Level, literacy, decrease access to med. care, longterm, rehab)? @ -No Was there de-escalation of care discussed even if they declined (Discuss DNR or withdrawal of care, Hospice)? DNR status @ -No What co-morbidities impacted this encounter? (DM, HTN, Smoking, COPD, CAD, Cancer, CVA, ARF, Chemo, Hep., AIDS, mental health diagnosis, sleep apnea, morbid obesity)? @ -None Was patient admitted / discharged? Hospital course, mention meds given and route, prescriptions, significant lab abnormalities, going to OR and other pertinent info. @ -Admitted patient has a right hip fracture patient be admitted to orthopedics for surgical intervention. Undiagnosed new problem with uncertain prognosis? @ -No Drug Therapy requiring intensive monitoring for toxicity (Heparin, Nitro, Insulin, Cardizem)? @ -No Were any procedures done? @ -No Diagnosis/symptom? @ -Fall, right hip fracture Acute, or Chronic, or Acute on Chronic? @ -Acute Uncomplicated (without systemic symptoms) or Complicated (systemic symptoms)? @ -[Complicated Side effects of treatment? @ -No Exacerbation, Progression, or Severe Exacerbation? @ -No Poses a threat to life or bodily function? How? (Chest pain, [place], [place], pneumonia, PE, COPD, DKA, ARF, appy, cholecystitis, CVA, Diverticulitis, Homicidal, Suicidal, threat to staff... and all critical care pts) @ -No - EKG Data -: EKG Interpreted by Me EKG Comments: EKG performed at 4:08 sinus rhythm rate of 78 IN 134 QRS 85 QT/QTC 364/398 Disposition Clinical Impression: Fall, Hip fracture, right Disposition: ADMITTED IP TO THIS HOSP Condition: Fair Time of Disposition: 03:44 (\)
[2023-05-26] MEDS ORDERED: NALOXONE 0.4 MG/ML 1 ML VIAL IV PRN ×2 (03:44→16:28)
[2023-05-26] MEDS ORDERED: ONDANSETRON 4 MG/2 ML VIAL IVP PRN (03:44)
[2023-05-26] MEDS: HYDROmorphone 0.5 MG/0.5 ML SYRINGE IVP PRN ×3 (04:07→21:37)
[2023-05-26 04:21] LABS: Anisocytosis Slight; Basophils % (A) 0 %; Eosinophils # (A) 0.1 k/uL (0-0.7); Eosinophils % (A) 1 %; HCT 35.6 % (34.0-46.0); HGB 10.6 gm/dL (11.4-16.0); Hypochromasia Marked; Lymphocytes # (A) 0.9 k/uL (1.0-4.8); Lymphocytes % (A) 6 %; MCH 21.6 pg (25.0-35.0); MCHC 29.8 g/dL (31.0-37.0); MCV 72.6 fL (80.0-100.0); Mean Platelet Volume 6.9; Microcytosis Moderate; Monocytes # (A) 0.6 k/uL (0-1.0); Monocytes % (A) 4 %; Neutrophils # (A) 13.1 k/uL (1.3-7.7); Neutrophils % (A) 88 %; Platelet Count 377 k/uL (150-450); RBC 4.91 m/uL (3.80-5.40); RDW 18.6 % (11.5-15.5); WBC 14.9 k/uL (3.8-10.6)
[2023-05-26 04:27] LABS: ALT 20 U/L (4-34); African American GFR (CKD) >90 (>60 ml/min/1.73 sqM); Anion Gap 7 mmol/L; Blood Urea Nitrogen 11 mg/dL (7-17); Calcium 8.5 mg/dL (8.4-10.2); Carbon Dioxide 25 mmol/L (22-30); Chloride 106 mmol/L (98-107); Glucose 133 mg/dL (74-99); Non-African American GFR(CKD) 86 (>60 ml/min/1.73 sqM); Sodium 138 mmol/L (137-145)
[2023-05-26 04:29] LABS: Albumin 4.1 g/dL (3.5-5.0); Potassium 5.5 mmol/L (3.5-5.1); Total Protein 7.5 g/dL (6.3-8.2)
[2023-05-26 04:30] LABS: AST 51 U/L (14-36); Alkaline Phosphatase 72 U/L (38-126); Total Bilirubin 0.9 mg/dL (0.2-1.3)
--- NOTE | 2023-05-26 04:50 | CT ---
EXAM: CT Head Without Intravenous Contrast CLINICAL HISTORY: ITS.REASON CT Reason: pain TECHNIQUE: Axial computed tomography images of the head/brain without intravenous contrast. CTDI is 45.2 mGy and DLP is 1296.5 mGy-cm. This CT exam was performed using one or more of the following dose reduction techniques: automated exposure control, adjustment of the mA and/or kV according to patient size, and/or use of iterative reconstruction technique. COMPARISON: No relevant prior studies available. FINDINGS: Brain: No hemorrhage, herniation, or mass effect. Chronic microvascular ischemic changes. Ventricles: No hydrocephalus. Age related cerebral volume loss. Bones/joints: Unremarkable. Soft tissues: Unremarkable. Sinuses: Unremarkable. Mastoid air cells: Clear. IMPRESSION: No acute hemorrhage, hydrocephalus, or mass effect. EXAM: CT Cervical Spine Without Intravenous Contrast CLINICAL HISTORY: ITS.REASON CT Reason: pain TECHNIQUE: Axial computed tomography images of the cervical spine without intravenous contrast. CTDI is 10.9 mGy and DLP is 382.3 mGy-cm. This CT exam was performed using one or more of the following dose reduction techniques: automated exposure control, adjustment of the mA and/or kV according to patient size, and/or use of iterative reconstruction technique. COMPARISON: No relevant prior studies available. FINDINGS: Vertebrae: No acute fracture of the cervical spine. Age indeterminate minimal superior endplate wedging of T4 Discs/spinal canal/neural foramina: degenerative changes. Soft tissues: No prevertebral swelling. IMPRESSION: No acute fracture of the cervical spine. Age indeterminate minimal superior endplate wedging of T4
[2023-05-26 05:17] LABS: Partial Thromboplastin Time 23.1 sec (22.0-30.0); Prothrombin Time 10.2 sec (9.0-12.0)
[2023-05-26] MEDS: HYDROcodone/APAP 5-325MG 1 EACH TAB PO PRN (06:15)
--- NOTE | 2023-05-26 06:39 | XR ---
EXAMINATION TYPE: XR chest 1V DATE OF EXAM: 05/26/2023 3:11 AM COMPARISON: Chest radiographs from 06/21/2022 TECHNIQUE: XR chest 1V Frontal view of the chest. CLINICAL INDICATION:Female, 82 years old with history of FALL, RT HIP FX; FINDINGS: Lungs/Pleura: There is no evidence of pleural effusion, focal consolidation, or pneumothorax. Pulmonary vascularity: Mild pulmonary vascular congestion. Heart/mediastinum: Cardiomediastinal silhouette is enlarged and stable. Atherosclerotic calcificatio ns are seen in the aorta. Musculoskeletal: No acute osseous pathology. IMPRESSION: Cardiomegaly and mild pulmonary vascular congestion. Correlate with BNP for congestive heart failure.
--- NOTE | 2023-05-26 06:42 | XR ---
EXAMINATION TYPE: XR Hip RT and AP Pelvis DATE OF EXAM: 05/26/2023 3:10 AM INDICATION: Patient age:Female; 82 years old; Reason for study: pain; PHH. COMPARISON: None. TECHNIQUE: The right hip was examined in the frontal and lateral projections . FINDINGS: Acute mildly displaced right proximal femoral neck fracture. Mild shortening identified. No dislocation. There is surrounding soft tissue swelling. Vascular sclerosis. IMPRESSION: Acute mildly displaced right proximal femoral neck fracture.
--- NOTE | 2023-05-26 06:56 | P.HPOR ---
History of Present Illness H&P Date: 05/26/23 Chief Complaint: fall, right hip pain History of Presenting Illness Patient is a pleasant 82-year-old female that presents to the ER via EMS due to a fall with right lower extremity pain. Patient currently resides at [facility]. Patient is a poor historian, alert to self. Patient's daughter is her POA, ER staff has reached out to speak with daughter, message left with no call back. material handler 1st shift RN states that the report from facility is that patient is normally independent with no assisted devices. She apparently was looking out of her room into hallway and lost her balance and fell. It was reported by staff from facility that patient did hit her head, no LOC. Patient is unable to recall. No medical history. No orthopedic history. Patient seen and examined in the ER. Patient is resting on stretcher. Patient is alert and oriented to self. Reorientation is needed frequently. RN is present in the room. Pain medication has been provided at this time. Patient denies any numbness or tingling to the right lower extremity. Mild bruising is present over right hip with small abrasion to the right knee. Right lower extremity is externally rotated. Right hip and pelvis x-ray demonstrates a right femoral neck fracture. Computed tomography scan of the head is negative for any hemorrhage, hydrocephalus, or mass effect. Computed tomography scan of the cervical spine is negative for any acute fractures. There is an age indeterminate T4 compression fracture. Review of Systems Pertinent positives and negatives as discussed in HPI, a complete review of systems was performed and all other systems are negative. Physical Examination Inspection: Negative for any open fractures, mild bruising over right hip, small skin abrasion to right knee. Sensation: Sensation is equal, symmetric, bilaterally intact throughout the upper and lower extremities Palpation: Nontender to palpation throughout bilateral upper and lower extremities and throughout spine exam Range of motion: Patient does have full range of motion bilateral upper and left lower extremities on exam, right lower extremity is externally rotated, limited ROM due to fracture and pain Motor: 5/5 in all major motor groups in the bilateral upper and left lower extremities, 4-/5 right lower extremity Special tests: Negative Homans bilaterally. Negative Kip bilaterally. Negative clonus bilaterally. Log roll of right lower extremity reproduces pain. Neurovascular: Radial pulse intact, 2+ bilaterally. Cap refill under 3 seconds in digits upper extremities. Assessment and Plan Fall from standing Right hip femoral neck fracture Age indeterminate T4 compression fracture At this time we recommend surgical intervention of a right hip hemiarthroplasty to be performed later today pending medical clearance. Patient to remain NPO. Required bedrest at this time, please insert roberts catheter. 2. Appreciate medical management 3. Pain management - Continue with IV and Oral pain medications 4. GI prophylaxis - senna, miralax 5. DVT prophylaxis - mechanical 6. PT/OT - bedrest I reviewed and discussed this case with my attending Dr. Lofton, whom has reviewed this chart and films and is in agreement with assessment and plan of care as outlined above. I have personally seen and examined the patient, performed the documentation and the assessment and plan as written. Number of minutes spent on the visit: 20m. Past Medical History Past Medical History: No Reported History History of Any Multi-Drug Resistant Organisms: None Reported Additional Past Surgical History / Comment(s): neck surgery Past Psychological History: No Psychological Hx Reported Smoking Status: Former smoker Past Alcohol Use History: None Reported Past Drug Use History: None Reported Medications and Allergies Home Medications Medication Instructions Recorded Confirmed Type Donepezil [Aricept] 5 mg PO HS 01/30/23 01/30/23 History Melatonin 3 mg PO HS tab 02/09/23 Rx Allergies Allergy/AdvReac Type Severity Reaction Status Date / Time No Known Allergies Allergy Verified 01/30/23 09:28 Results - Labs Labs: Abnormal Lab Results - Last 24 Hours (Table) 05/26/23 05/26/23 Range/Units 04:03 04:03 WBC 14.9 H (3.8-10.6) k/uL Hgb 10.6 L (11.4-16.0) gm/dL MCV 72.6 L (80.0-100.0) fL MCH 21.6 L (25.0-35.0) pg MCHC 29.8 L (31.0-37.0) g/dL RDW 18.6 H (11.5-15.5) % Neutrophils # 13.1 H (1.3-7.7) k/uL Lymphocytes # 0.9 L (1.0-4.8) k/uL Potassium 5.5 H (3.5-5.1) mmol/L Glucose 133 H (74-99) mg/dL AST 51 H (14-36) U/L H & H 05/26/23 Range/Units 04:03 Hgb 10.6 L (11.4-16.0) gm/dL Hct 35.6 (34.0-46.0) % Coagulation 05/26/23 Range/Units 04:03 INR 1.0 (<1.2) Result Diagrams: 05/26/23 04:03 05/26/23 04:03
[2023-05-26 08:35] LABS: Amorphous Sediment,Urine Rare /hpf; Appearance,Urine Cloudy (Clear); Bilirubin,Urine Negative (Negative); Blood,Urine Negative (Negative); Color,Urine Yellow; Glucose,Urine (UA) Negative (Negative); Hyaline Casts,Urine 1 /lpf (0-2); Ketones,Urine Negative (Negative); Leukocyte Esterase,Urine Moderate (Negative); Mucus,Urine Many /hpf; Nitrite,Urine Negative (Negative); PH, Urine 5.5 (5.0-8.0); Protein,Urine Trace (Negative); RBC,Urine 2 /hpf (0-5); Specific Gravity,Urine 1.017 (1.001-1.035); Squamous Epithelial Cell,Urine 1 /hpf (0-4); Urobilinogen,Urine <2.0 mg/dL (<2.0); WBC,Urine 7 /hpf (0-5)
[2023-05-26] MEDS ORDERED: SODIUM ZIRCONIUM CYCLOSILICATE 10 GM PACKET PO ONE (09:57)
[2023-05-26] MEDS ORDERED: INSULIN REGULAR 100 UNIT/ML VIAL (IV) IV ONE (09:57)
[2023-05-26] MEDS ORDERED: DEXTROSE 50% SYRINGE 50 ML IVP ONE (09:57)
[2023-05-26] MEDS ORDERED: ACETAMINOPHEN TAB 325 MG TAB PO PRN (10:03)
--- NOTE | 2023-05-26 11:14 | CT ---
EXAMINATION TYPE: CT hip RT wo con DATE OF EXAM: 05/26/2023 COMPARISON: X-ray 05/26/2023 HISTORY: fall right hip pain CT DLP: 522.2 mGycm Automated exposure control for dose reduction was used. FINDINGS: There is an acute impacted comminuted fracture of the proximal right femur. Moderate hip arthropathy. Findings compatible femoral acetabulum. Remaining osseous structures intact. There is adjacent soft tissue edema. Diverticulosis of the colon. Ortiz catheter noted in bladder. Vascular calcifications n oted. Chronic deformity of the iliac crest. IMPRESSION: ACUTE IMPACTED COMMINUTED FRACTURE PROXIMAL RIGHT FEMUR.
--- NOTE | 2023-05-26 12:45 | P.CONS ---
History of Present Illness - Reason for Consult Consult date: 05/26/23 - Chief Complaint Status post FALL, right hip fracture - History of Present Illness * 82-year-old lady with past medical history of dementia presents from medical's after fall. At the time of presentation in ED patient complained of right hip pain * Workup in ER included hematology which were WBC of 14.9 likely reactive, hemoglobin 10.6 platelet count of 377 * Id. chemistry obtained on admission showed sodium 138 potassium 5.5 chloride 106, Quynh 25 BUNs 11 creatinine 0.57 blood glucose 133 * Urinalysis obtained on admission did show moderate leukocyte Estrace, WBC, * She was given collection for hyperkalemia, with follow potassium levels ordered * Home medications were reviewed and reconciled * Patient medically cleared for surgery REVIEW OF SYSTEMS: LIMITED DUE TO DEMENTIA PHYSICAL EXAMINATION: GENERAL: The patient is alert and oriented x 0 , not in any acute distress. HEENT: Pupils are round and equally reacting to light PULMONARY: Chest is clear to auscultation, no wheezing or crackles. ABDOMEN: Soft, nontender, nondistended, normoactive bowel sounds. No palpable organomegaly. MUSCULOSKELETAL: Range of motion limited right hip tenderness on palpation NEUROLOGICAL: Gross neurological examination did not reveal any focal deficits. , Cognitive impairment dementia SKIN: No rashes. Past Medical History Past Medical History: No Reported History History of Any Multi-Drug Resistant Organisms: None Reported Additional Past Surgical History / Comment(s): neck surgery Past Psychological History: No Psychological Hx Reported Smoking Status: Former smoker Past Alcohol Use History: None Reported Past Drug Use History: None Reported Medications and Allergies Home Medications Medication Instructions Recorded Confirmed Type Donepezil [Aricept] 5 mg PO HS 01/30/23 05/26/23 History Melatonin 3 mg PO HS tab 02/09/23 05/26/23 Rx Acetaminophen [Tylenol 8 Hour] 650 mg PO Q6H PRN 05/26/23 05/26/23 History Allergies Allergy/AdvReac Type Severity Reaction Status Date / Time No Known Allergies Allergy Verified 05/26/23 07:05 Physical Exam Vitals: Vital Signs Temp Pulse Resp BP Pulse Ox 05/26/23 07:49 98.7 F 90 20 156/92 96 05/26/23 06:15 80 18 143/75 88 L 05/26/23 02:22 97.7 F 79 18 153/83 96 Intake and Output 05/25/23 05/26/23 05/26/23 22:59 06:59 14:59 Other: Weight 74.843 kg Results CBC & Chem 7: 05/26/23 04:03 05/26/23 10:28 Labs: Abnormal Lab Results - Last 24 Hours (Table) 05/26/23 05/26/23 05/26/23 Range/Units 04:03 04:03 07:48 WBC 14.9 H (3.8-10.6) k/uL Hgb 10.6 L (11.4-16.0) gm/dL MCV 72.6 L (80.0-100.0) fL MCH 21.6 L (25.0-35.0) pg MCHC 29.8 L (31.0-37.0) g/dL RDW 18.6 H (11.5-15.5) % Neutrophils # 13.1 H (1.3-7.7) k/uL Lymphocytes # 0.9 L (1.0-4.8) k/uL Potassium 5.5 H (3.5-5.1) mmol/L Glucose 133 H (74-99) mg/dL AST 51 H (14-36) U/L Urine Appearance Cloudy H (Clear) Urine Protein Trace H (Negative) Ur Leukocyte Esterase Moderate H (Negative) Urine WBC 7 H (0-5) /hpf Amorphous Sediment Rare H (None) /hpf Urine Mucus Many H (None) /hpf Assessment and Plan Assessment: Assessment and plan Status post fall with right femoral neck fracture Pre Operative clearance for surgery Transient hyperkalemia Chronic anemia History of dementia * Follow-up/repeat potassium levels ordered, within normal limits * Home medications reviewed and reconciled * Serum potassium within normal limits * In regards to history of dementia continue with delirium precautions * Need physical therapy occupational evaluation post procedure * Continue to monitor vitals, maintain fall precautions while inpatient
[2023-05-26] MEDS ORDERED: LACTATED RINGERS 1,000 ML IV ONE (14:05)
[2023-05-26 14:12] LABS: Glucose,Whole Blood 117 mg/dL (70-110)
--- NOTE | 2023-05-26 14:43 | P.PN ---
Progress Note - Text Progress Note Date: 05/26/23 Orthopedic Surgery Risk Review Anamika Guthrie is a 82-year-old female presenting for evaluation of sudden onset right hippain, inability to ambulate after fall from standing at home. It was my pleasure to have seen and examined Anamika. In our visit today we have had a chance to go over subjective complaints, physical examination findings and treatments including the natural course history without intervention and various interventional options. her imaging demonstrates right intertrochanteric hip fracture displaced. On physical exam, Anamika and her familydemonstrates pain with motion of right lower extremity, which is NV intact at this time. I have explained to the patient that this fracture needs stabilization. Based on the patients imaging, physical exam, and the rapid progression and disabling nature of her symptoms, at this time I recommend surgery in the form or a: right hip intramedullary nail fixation I discussed the risk and benefits of this procedure at length with Anamika and her family at bedside. Questions were invited and answered, and the patient wishes to proceed as outlined below. Currently, I am recommendin. right hip intramedullary nail fixation 2. Review of surgical risks and benefits as well as an educational packet on the proposed surgical procedure. Risks: All surgical procedures come with inherent risks, including those related to positioning, anesthesia, intraoperative findings, and postoperative complications. It is important to understand that surgery does not come with any guarantee of a successful outcome as complications and adverse events are always possible. The patient was given a handout discussing the surgical procedure and risks associated with the intervention, both of which were discussed with the patient. These risks include but are not limited to the following: - Experiencing same, different or even worse symptoms compared to before surgery. - Requiring further surgery or other forms of treatment presently or at some time in the future . - On an extreme but fortunately relatively rare basis severe complication such as blindness, stroke, heart attack, temporary and/or permanent nerve injury, paralysis, coma, or may occur, sometimes without known explanation. - Surgical complications may include but are not limited to risk of infection, fluid accumulation in the surgical dissection site, including a seroma or hematoma, that requires additional surgery, wound drainage, bleeding, new numbness or weakness, vision changes/loss, spinal fluid leakage, non-healing and/or infected incision, headaches, difficulty or inability to swallow, hoarseness, hemopneumothorax, pneumothorax, injury to nerves, spinal cord, blood vessels, lymphatics or other vital organs (i.e., bowel injury, injury to the great vessels); heterotopic bone formation; complications related to the hardware such as screws, rods, including misplaced hardware, device failure, hardware fracture/breakage, or hardware loosening; retained surgical instrumentations or devices and the need for further surgery. - Medical risks of the planned surgery include but are not limited to generalized Infections to the whole body or local areas outside of the surgical site (sepsis), heart attack, bleeding, anaphylaxis, meningitis, seizure, epilepsy, hearing loss, burn so, laceration of the head or other areas of the body, bruising, hypersensitivity of the skin, bladder over distension; allergic reaction; shoulder injury related to positioning; fat, blood and air clots to other areas of the body like heart, lungs, brain; failure of internal organs such as lungs, kidneys, liver and excessive bleeding. If blood transfusions are necessary, note that transfusions may cause intolerance reactions such as anaphylaxis or other complex reactions. Despite best efforts, the results of surgery might not heal in terms of bone, soft tissues such as skin, fascia, ligaments, and joints. [facility] has multiple operating rooms with single and overlapping rooms running daily. They currently function under the required guidelines as produced by the Senate Finance Committee with regards to the overlapping rooms and will continue to comply with changes to this policy as they occur. The requirements include and are complied with as follows: (1) the critical portions of the overlapping rooms will not occur at the same time, (2) the attending physician will be physically present during the critical portions of the procedure and immediately available during the entire case, and (3) a back-up attending is designated should the primary attending not be immediately available. The patient has had a chance to review all the listed information, has been given print outs detailing this information, and has had all his/her questions answered to their satisfaction. It was my pleasure to have seen and examined Anamika. In our visit today we have had a chance to go over my understanding of our patient's current condition, the natural course history without intervention and various interventional options. Questions were invited and answered, and the patient wishes to proceed as outlined above. I have seen and examined the patient for 25 minutes and we have spent more than 50% of the time in repeat and detailed counseling about the patient's condition, its natural course history with out and as much as can be predicted with surgery and re-review of various surgical treatment options. In conclusion, Anamika and her family at bedside requested we proceed with the above suggested surgery and are willing to accept risks and limitations of the suggested surgery as nature of the disease process and our best attempts at treatment for the condition. Thank you again for allowing us to be part of your patient's care. Please don't hesitate to contact me if you have any further questions. Signed and authenticated by: Jose [facility] [address] [facility], [address] [address]
[2023-05-26] MEDS ORDERED: MIDAZOLAM 2 MG/2 ML VIAL ONE (15:02)
[2023-05-26] MEDS ORDERED: ePHEDrine 50 MG/ML 1 ML VIAL ONE (15:02)
[2023-05-26] MEDS ORDERED: fentaNYL (PF) 50 MCG/ML 2 ML AMP ONE (15:02)
[2023-05-26] MEDS ORDERED: PHENYLEPHRINE-0.9% NACL SYG 1,000 MCG/10 ML SYRINGE ONE (15:02)
[2023-05-26] MEDS ORDERED: KETAMINE HCL IN 0.9 % NACL 50 MG/5 ML SYRINGE ONE (15:02)
[2023-05-26] MEDS ORDERED: ceFAZolin 1,000 MG in SODIUM CHLORIDE 0.9% 1,000 ML IRRIGATION ONE (15:08)
[2023-05-26] MEDS ORDERED: MAGNESIUM HYDROXIDE 2,400 MG/30 ML CUP PO PRN (16:28)
--- NOTE | 2023-05-26 16:32 | P.OP ---
Date of Procedure: 05/26/23 Preoperative Diagnosis: 1. Right hip intertrochanteric fracture displaced 2. Status post fall from standing 3. Complex medical patient Postoperative Diagnosis: 1. Right hip intertrochanteric fracture displaced 2. Status post fall from standing 3. Complex medical patient Procedure(s) Performed: 1. Intramedullary nail fixation right proximal femur fracture, intertrochanteric fracture displaced Implants: [employer] InterTAN 125 180 mm nail Anesthesia: GETA Surgeon: Jose Lofton Obstetrics Gynecology Physician #1: Merly Santiago (Merly Santiago, CHIROPRACTIC NEUROLOGIST Was present and assisted with all aspects of the case from positioning to dressing placement) Estimated Blood Loss (ml): 100 IV fluids (ml): 950 Urine output (ml): 250 Pathology: none sent Condition: stable Disposition: PACU Indications for Procedure: Anamika Guthrie is a 82-year-old female presenting for evaluation of sudden onset right hippain, inability to ambulate after fall from standing at home. It was my pleasure to have seen and examined Anamika. In our visit today we have had a chance to go over subjective complaints, physical examination findings and treatments including the natural course history without intervention and various interventional options. her imaging demonstrates right intertrochanteric hip fracture displaced. On physical exam, Anamika and her familydemonstrates pain with motion of right lower extremity, which is NV intact at this time. I have explained to the patient that this fracture needs stabilization. Based on the patients imaging, physical exam, and the rapid progression and disabling nature of her symptoms, at this time I recommend surgery in the form or a: right hip intramedullary nail fixation I discussed the risk and benefits of this procedure at length with Anamika and her family at bedside. Questions were invited and answered, and the patient wishes to proceed as outlined below. Currently, I am recommendin. right hip intramedullary nail fixation Description of Procedure: LEFT hip short IMN The patient was seen and examined in the preoperative area. All preoperative protocols were followed. Informed consent was obtained, risks and benefits of the procedure were discussed at length. Risks including bleeding infection dam age to the surrounding tissue and risk of reoperation were discussed with the patient. Risk of anesthesia up to and including was discussed with the patient. These are outlined in the risk reviewed. They were willing to accept these risks and all of the risks of surgery. The patient was given a weight- based dose of antibiotics in the form of 2 g Ancef. The patient was seen and evaluated by the anesthesia team who deemed them fit for surgery. The site was marked, the patient was willing to proceed with the procedure. The patient was transferred to the operative suite by the Department of anesthesia. They were then drifted off to sleep by the department of anesthesia andGETA anesthesia was used. Once adequate anesthesia had been obtained the patient was carefully transferred to the operative bed. All bony prominences were padded accordingly. SCDs were placed on the nonoperative lower extremities. Arms were well padded. The patient was transferred to the Teresita table and her Left leg was placed in a Teresita boot and secured to the table. The left leg was placed in a well-leg hastings well padded and secured. The post was placed and she was secured appropriately. arms were placed on arm boards and well-padded Preoperative briefing was done with the operative team and everyone was ready for the procedure to start. Xray used to reduce the fracture with Teresita table. The patient's left leg was then prepped and draped in the normal sterile fashion. Timeout was then performed and all parties in agreement with the procedure to be performed. X-ray was then used to akua 2 cm proximal to the GT. Skin incision made in line with the femur and blunt dissection taken down to the deep facia which was split. Blut dissetion then taken down to the tip of the GT and the sharp awl used. Optimal starting point achieved on AP and Lateral imaging. Awl was then advanced into the proximal femur. Ball tip guidewire was then passed into the femur. It was confirmed on Ap and laterl. Opening reamer then passed followed by 9, 11 and 13 mm reamers. Then the nail was selected and impacted into place over the wire using flouroscopic guidance. Once in position the lateral guide was placed and skin incisoin made in line with the femur over the lateral aspect. Dissection taken down through the tensor facia which was split inline with its fibers. The guide was seated against bone. Pin was placed through guide for the lag screw to be with in 10mm on Ap and lateral of the subchondarl bone. This was then measured. Appropriate sized compression screw then selected and drilled. Then the lag screw drilled. Lag screw placed over the wire followed by the compression screw. About 7 mm of compression was achieved. Good alignment in AP and lateral shown. The nail was then locked proximally. Distal locking screw was then placed through the jig using similar technique. Screw was drilled and measured and placed. AP and lateral confirmed good placement and good fracture reduction as well as stability in ROM. The guid was then removed from the nail. The wound was then copiously irrigated with normal sterile saline final AP and lateral fluoroscopic imaging confirmed good placement of pins as well as reduction of fracture. The deep fascia was then closed with 0 Vicryl superficial closed 2-0 Vicryl and skin closed with skin aman the wound edges approximated very well. The wound was then cleaned and dressed with an optifoam dressing. The patient was then transferred back to their hospital bed. There were awakened by department of anesthesia having tolerated the procedure very well with no complications. The patient was then transported to the postoperative care unit in stable condition.
--- NOTE | 2023-05-26 16:37 | XR ---
Intraoperative/procedural fluoroscopic services were provided for right hip fracture IT nailing. Tota l fluoroscopy time is 1 minute 40 seconds with a total of 7 submitted images to PACS. Total DAP 4.435 5 Gycm2. Please see the operative note for further details.
--- NOTE | 2023-05-26 18:07 | XR ---
EXAMINATION TYPE: XR Hip Limited RT DATE OF EXAM: 05/26/2023 COMPARISON: None HISTORY: Right hip and TECHNIQUE: AP and right hip. FINDINGS: Right hip pin is in place. No new fractures are evident. Postsurgical soft tissue changes a re evident. IMPRESSION: 1. No acute fracture post right hip pinning for fracture repair
[2023-05-26] MEDS: MELATONIN 3 MG TABLET PO SCH (21:53)
[2023-05-26] MEDS: DONEPEZIL 5 MG TAB PO SCH (21:54)
[2023-05-26] MEDS: SENNOSIDES-DOCUSATE SODIUM 1 EACH TAB PO SCH (21:54)
[2023-05-27] MEDS: HYDROmorphone 0.5 MG/0.5 ML SYRINGE IVP PRN (04:04)
--- NOTE | 2023-05-27 08:32 | P.PN ---
Subjective Progress Note Date: 05/27/23 Principal diagnosis: Fall from standing Right hip pain Patient seen and examined this morning. Patient is resting comfortably in bed. Patient is alert to self, which seems to be her baseline. 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 Dressings have been reapplied. Informed RN to leave Ortiz catheter out at this time. Patient is moving right lower extremity with mild facial grimacing. Patient is able to perform bed exercises without difficulty. Patient is to work with physical therapy today. Discharge planning is for her to return to [facility] when medically stable. No acute concerns at this time. Objective - Vital Signs Vital signs: Vital Signs Temp 98.1 F 05/27/23 07:13 Pulse 112 H 05/27/23 07:13 Resp 19 05/27/23 07:13 BP 153/67 05/27/23 07:13 Pulse Ox 81 L 05/27/23 07:13 FiO2 Intake & Output 05/26/23 05/27/23 05/27/23 18:59 06:59 18:59 Intake Total 1001 Output Total 200 Balance 801 Weight 74.843 kg Intake: IV 951 Intake, IV Titration 50 Amount cefTRIAXone 2 gm In 50 Sodium Chloride 0.9% 50 ml @ 100 mls/hr IVPB Q24HR [facility] Rx#:[id number] Output: Urine 100 Estimated Blood Loss 100 Other: Voiding Method Indwelling Catheter # Voids 1 - Exam Inspection: Surgical incision to the right hip 2, dressings are clean dry and intact. Small skin abrasion to right knee. Sensation: Sensation is equal, symmetric, bilaterally intact throughout the upper and lower extremities Palpation: Nontender to palpation throughout bilateral upper and lower extremities and throughout spine exam Range of motion: Patient does have full range of motion bilateral upper and left lower extremities on exam, right lower extremity is externally rotated, limited ROM due to fracture and pain Motor: 5/5 in all major motor groups in the bilateral upper and left lower extremities, 4/5 right lower extremity Special tests: Negative Homans bilaterally. Negative Kip bilaterally. Negative clonus bilaterally. Log roll of right lower extremity reproduces pain. Neurovascular: Radial pulse intact, 2+ bilaterally. Cap refill under 3 seconds in digits upper extremities. - Labs CBC & Chem 7: 05/26/23 04:03 05/26/23 11:16 Labs: Abnormal Lab Results - Last 24 Hours (Table) 05/26/23 05/26/23 Range/Units 07:48 14:11 POC Glucose (mg/dL) 117 H (70-110) mg/dL Urine Appearance Cloudy H (Clear) Urine Protein Trace H (Negative) Ur Leukocyte Esterase Moderate H (Negative) Urine WBC 7 H (0-5) /hpf Amorphous Sediment Rare H (None) /hpf Urine Mucus Many H (None) /hpf Assessment and Plan Assessment: Postop day 1: Right hip IT nail fixation Fall from standing Right hip femoral neck fracture Age indeterminate T4 compression fracture Plan: -Appreciate senior environmental consultant and team management. -Activity: Ambulate QID, OOB all meals, up and about, limit lifting bending twisting to less than 5 lbs. Use walker or cane if needed for stability. -Daily PT/OT, increase ambulation strength and balance. -Pain control: Adequate at this time -Meds: reviewed -GI ppx: senna, Miralax -DVT PPX: OK to restart Heparin tonight -Hygiene: Shower today. Maintain dressings clean and dry. -Encourage IS 10x/hr -Dispo: Anticipate discharge return to [facility] in the next 24-48hrs *I reviewed and discussed this case with my attending Dr. Lofton, whom has reviewed this chart and films and is in agreement with assessment and plan of care as outlined above. I have personally seen and examined the patient, performed the documentation and the assessment and plan as written. Number of minutes spent on the visit: 10m.
[2023-05-27] MEDS: ENOXAPARIN 40 MG/0.4 ML SYRINGE SQ SCH (08:55)
[2023-05-27] MEDS: HYDROcodone/APAP 5-325MG 1 EACH TAB PO PRN ×3 (09:06→21:24)
[2023-05-27 09:22] LABS: INR 1.1 (<1.2); Prothrombin Time 11.2 sec (9.0-12.0)
[2023-05-27 09:26] LABS: Anisocytosis Slight; Basophils % (A) 0 %; Eosinophils % (A) 0 %; HCT 31.4 % (34.0-46.0); HGB 9.7 gm/dL (11.4-16.0); Hypochromasia Marked; Lymphocytes # (A) 1.3 k/uL (1.0-4.8); Lymphocytes % (A) 12 %; MCH 22.2 pg (25.0-35.0); MCV 71.6 fL (80.0-100.0); Mean Platelet Volume 7.4; Microcytosis Marked; Monocytes % (A) 10 %; Neutrophils # (A) 7.9 k/uL (1.3-7.7); Neutrophils % (A) 76 %; Platelet Count 292 k/uL (150-450); RBC 4.38 m/uL (3.80-5.40); RDW 18.1 % (11.5-15.5); WBC 10.4 k/uL (3.8-10.6)
[2023-05-27 09:53] LABS: African American GFR (CKD) >90 (>60 ml/min/1.73 sqM); Anion Gap 8 mmol/L; Blood Urea Nitrogen 19 mg/dL (7-17); Calcium 8.5 mg/dL (8.4-10.2); Carbon Dioxide 27 mmol/L (22-30); Chloride 104 mmol/L (98-107); Glucose 113 mg/dL (74-99); Non-African American GFR(CKD) 80 (>60 ml/min/1.73 sqM); Potassium 4.5 mmol/L (3.5-5.1); Sodium 139 mmol/L (137-145)
--- NOTE | 2023-05-27 11:38 | XR ---
EXAMINATION TYPE: XR chest 1V portable DATE OF EXAM: 05/27/2023 Comparison: 05/26/2023 Clinical History: 82-year-old female hypoxia Findings: Heart borderline enlarged. Atherosclerotic calcifications throughout the aorta. Diffuse interstitial densities. Patchy peripheral basilar opacities. Impression: Ongoing and slight worsening interstitial opacities and patchy peripheral basilar infiltrates. Consid er following vascular congestion versus atypical pneumonias including COVID pneumonia or interstitial pneumonitis.
[2023-05-27] MEDS: SODIUM CHLORIDE 0.9% 1,000 ML IV SCH (13:12)
--- NOTE | 2023-05-27 13:34 | P.PN ---
Subjective Progress Note Date: 05/27/23 82-year-old lady with past medical history of dementia presents from medical's after fall. At the time of presentation in ED patient complained of right hip pain * Workup in ER included hematology which were WBC of 14.9 likely reactive, hemoglobin 10.6 platelet count of 377 * Id. chemistry obtained on admission showed sodium 138 potassium 5.5 chloride 106, Quynh 25 BUNs 11 creatinine 0.57 blood glucose 133 * Urinalysis obtained on admission did show moderate leukocyte Estrace, WBC, * She was given collection for hyperkalemia, with follow potassium levels ordered * Home medications were reviewed and reconciled * Patient medically cleared for surgery 05/27. Patient seen and examined. Patient was having episodes where her oxygen will drop into the 80s transiently. Denies any chest pain. States right hip pain has improved. REVIEW OF SYSTEMS: CONSTITUTIONAL: No fever, no malaise,. CARDIOVASCULAR: No chest pain, no palpitations, no syncope. PULMONARY: No shortness of breath, no cough, GASTROINTESTINAL: No diarrhea, no nausea, no vomiting, no abdominal pain. NEUROLOGICAL: No headaches, no weakness, PHYSICAL EXAMINATION: GENERAL: The patient is alert and oriented x3, not in any acute distress. Well developed, well nourished. HEENT: Pupils are round and equally reacting to light. EOMI. No scleral icterus. No conjunctival pallor. Normocephalic, atraumatic. No pharyngeal erythema. No thyromegaly. CARDIOVASCULAR: S1 and S2 present. No murmurs, rubs, or gallops. PULMONARY: Chest is clear to auscultation, no wheezing or crackles. ABDOMEN: Soft, nontender, nondistended, normoactive bowel sounds. No palpable organomegaly. MUSCULOSKELETAL: Right hip surgical incision seen EXTREMITIES: No cyanosis, clubbing, or pedal edema. NEUROLOGICAL: Gross neurological examination did not reveal any focal deficits. SKIN: No rashes. Assessment and plan Status post fall with right femoral neck fracture Transient hypoxia Pre Operative clearance for surgery Transient hyperkalemia Chronic anemia History of dementia Monitor vital signs Monitor CBC Monitor CMP Continue pain management Continue IV Rocephin Continue DVT prophylaxis per orthopedics PT and OT following Labs and medication were reviewed.. Continue same treatment. Continue with symptomatic treatment. Resume home medication. Monitor labs and vitals. DVT and GI prophylaxis. Further recommendations as per clinical course of the patient Dictation was produced using [employer] dictation software. please excuse any grammatical, word or spelling errors. Objective - Vital Signs Vital signs: Vital Signs Temp 98.1 F 05/27/23 07:13 Pulse 94 05/27/23 09:19 Resp 19 05/27/23 07:13 BP 153/67 05/27/23 07:13 Pulse Ox 92 L 05/27/23 08:24 FiO2 Intake & Output 05/26/23 05/27/23 05/27/23 18:59 06:59 18:59 Intake Total 1001 Output Total 200 Balance 801 Weight 74.843 kg Intake: IV 951 Intake, IV Titration 50 Amount cefTRIAXone 2 gm In 50 Sodium Chloride 0.9% 50 ml @ 100 mls/hr IVPB Q24HR [facility] Rx#:[id number] Output: Urine 100 Estimated Blood Loss 100 Other: Voiding Method Indwelling Catheter # Voids 1 - Labs CBC & Chem 7: 05/27/23 08:08 05/27/23 08:08 Labs: Abnormal Lab Results - Last 24 Hours (Table) 05/26/23 05/27/23 05/27/23 Range/Units 14:11 08:08 08:08 Hgb 9.7 L (11.4-16.0) gm/dL Hct 31.4 L (34.0-46.0) % MCV 71.6 L (80.0-100.0) fL MCH 22.2 L (25.0-35.0) pg RDW 18.1 H (11.5-15.5) % Neutrophils # 7.9 H (1.3-7.7) k/uL BUN 19 H (7-17) mg/dL Glucose 113 H (74-99) mg/dL POC Glucose (mg/dL) 117 H (70-110) mg/dL
[2023-05-27] MEDS ORDERED: LORazepam 2 MG/ML INJ IV STA (19:59)
[2023-05-27] MEDS ORDERED: HALOPERIDOL LACTATE 5 MG/ML 1 ML VIAL IM PRN (19:59)
[2023-05-27] MEDS: DONEPEZIL 5 MG TAB PO SCH (21:24)
[2023-05-27] MEDS: SENNOSIDES-DOCUSATE SODIUM 1 EACH TAB PO SCH (21:24)
[2023-05-27] MEDS: MELATONIN 3 MG TABLET PO SCH (21:24)
[2023-05-27] MEDS: HALOPERIDOL LACTATE 5 MG/ML 1 ML VIAL IM PRN (22:10)
--- NOTE | 2023-05-28 08:22 | P.PN ---
Subjective Progress Note Date: 05/28/23 Principal diagnosis: Fall from standing Right hip pain Patient seen and examined this morning. Patient is resting comfortably in bed. Patient does have complaint of mild pain to the right hip. Surgical dressings are CDI, no shadowing noted. Patient is moving right lower extremity with mild facial grimacing. Patient is able to perform bed exercises without difficulty. Patient was unable to work with physical therapy yesterday due to her pain level. Continue to utilize ice packs and oral pain medication for pain management. Discharge planning is for her to return to [facility]. No acute concerns at this time. Objective - Vital Signs Vital signs: Vital Signs Temp 98.3 F 05/28/23 00:19 Pulse 87 05/28/23 00:19 Resp 18 05/28/23 00:19 BP 109/55 05/28/23 00:19 Pulse Ox 98 05/28/23 00:19 FiO2 Intake & Output 05/27/23 05/28/23 05/28/23 18:59 06:59 18:59 Output Total 600 Balance -600 Output: Urine 600 Straight 300 Other: # Voids 0 - Exam Inspection: Surgical incision to the right hip 2, dressings are clean dry and intact. Small skin abrasion to right knee. Sensation: Sensation is equal, symmetric, bilaterally intact throughout the upper and lower extremities Palpation: Nontender to palpation throughout bilateral upper and lower extremities and throughout spine exam Range of motion: Patient does have full range of motion bilateral upper and left lower extremities on exam, right lower extremity is externally rotated, limited ROM due to fracture and pain Motor: 5/5 in all major motor groups in the bilateral upper and left lower extremities, 4/5 right lower extremity Special tests: Negative Homans bilaterally. Negative Kip bilaterally. Negative clonus bilaterally. Log roll of right lower extremity reproduces pain. Neurovascular: Radial pulse intact, 2+ bilaterally. Cap refill under 3 seconds in digits upper extremities. - Labs CBC & Chem 7: 05/27/23 08:08 05/27/23 08:08 Labs: Abnormal Lab Results - Last 24 Hours (Table) 05/27/23 05/27/23 Range/Units 08:08 08:08 Hgb 9.7 L (11.4-16.0) gm/dL Hct 31.4 L (34.0-46.0) % MCV 71.6 L (80.0-100.0) fL MCH 22.2 L (25.0-35.0) pg RDW 18.1 H (11.5-15.5) % Neutrophils # 7.9 H (1.3-7.7) k/uL BUN 19 H (7-17) mg/dL Glucose 113 H (74-99) mg/dL Assessment and Plan Assessment: Postop day 2: Right hip IT nail fixation Fall from standing Right hip femoral neck fracture Age indeterminate T4 compression fracture Plan: -Appreciate senior billing consultant and team management. -Activity: Ambulate QID, OOB all meals, up and about, limit lifting bending twisting to less than 5 lbs. Use walker or cane if needed for stability. -Daily PT/OT, increase ambulation strength and balance. -Pain control: Adequate at this time -Meds: reviewed -GI ppx: senna, Miralax -DVT PPX: Lovenox -Hygiene: Shower today. Maintain dressings clean and dry. -Encourage IS 10x/hr -Dispo: Anticipate discharge return to [facility] today pending PT. *I reviewed and discussed this case with my attending Dr. Lofton, whom has reviewed this chart and films and is in agreement with assessment and plan of care as outlined above. I have personally seen and examined the patient, performed the documentation and the assessment and plan as written. Number of minutes spent on the visit: 10m.
[2023-05-28 08:25] LABS: Anisocytosis Slight; Basophils # (A) 0.1 k/uL (0-0.2); Basophils % (A) 1 %; Eosinophils # (A) 0.3 k/uL (0-0.7); Eosinophils % (A) 2 %; HCT 26.9 % (34.0-46.0); Hypochromasia Marked; Lymphocytes # (A) 1.2 k/uL (1.0-4.8); Lymphocytes % (A) 10 %; MCH 22.1 pg (25.0-35.0); MCV 73.7 fL (80.0-100.0); Mean Platelet Volume 7.1; Microcytosis Moderate; Monocytes # (A) 0.9 k/uL (0-1.0); Monocytes % (A) 8 %; Neutrophils # (A) 8.7 k/uL (1.3-7.7); Neutrophils % (A) 77 %; Platelet Count 310 k/uL (150-450); RBC 3.65 m/uL (3.80-5.40); RDW 18.3 % (11.5-15.5); WBC 11.3 k/uL (3.8-10.6)
[2023-05-28 08:26] LABS: HGB 8.1 gm/dL (11.4-16.0)
[2023-05-28] MEDS: ENOXAPARIN 40 MG/0.4 ML SYRINGE SQ SCH (08:58)
[2023-05-28] MEDS: SODIUM CHLORIDE 0.9% 1,000 ML IV SCH (09:00)
--- NOTE | 2023-05-28 13:32 | P.PN ---
Subjective Progress Note Date: 05/28/23 * 82-year-old lady with past medical history of dementia presents from medical's after fall. At the time of presentation in ED patient complained of right hip pain * Workup in ER included hematology which were WBC of 14.9 likely reactive, hemoglobin 10.6 platelet count of 377 * Id. chemistry obtained on admission showed sodium 138 potassium 5.5 chloride 106, Quynh 25 BUNs 11 creatinine 0.57 blood glucose 133 * Urinalysis obtained on admission did show moderate leukocyte Estrace, WBC, * She was given collection for hyperkalemia, with follow potassium levels ordered * Home medications were reviewed and reconciled * Patient medically cleared for surgery * 05/27. Patient seen and examined. Patient was having episodes where her oxygen will drop into the 80s transiently. Denies any chest pain. States rig ht hip pain has improved. * 05/28: Patient seen and evaluated bedside postoperative day 2. We'll continue to monitor hemoglobin mentation has improved. No lobe and 8.1 we'll continue to monitor for postoperative bleed Objective - Vital Signs Vital signs: Vital Signs Temp 99.3 F 05/28/23 12:52 Pulse 102 H 05/28/23 12:54 Resp 18 05/28/23 12:54 BP 160/76 05/28/23 12:52 Pulse Ox 97 05/28/23 12:52 FiO2 Intake & Output 05/27/23 05/28/23 05/28/23 18:59 06:59 18:59 Output Total 600 Balance -600 Output: Urine 600 Straight 300 Other: Voiding Method Indwelling Catheter # Voids 0 - Exam PHYSICAL EXAMINATION: HYSICAL EXAMINATION: GENERAL: The patient is alert and oriented x 0 , not in any acute distress. , Ill appearance, pale HEENT: Normocephalic/atraumatic PULMONARY: Chest is clear to auscultation, no wheezing or crackles. ABDOMEN: Soft, nontender, nondistended, normoactive bowel sounds. No palpable organomegaly. MUSCULOSKELETAL: Range of motion limited right hip is currently incision bandage, no hematoma noted NEUROLOGICAL: Gross neurological examination did not reveal any focal deficits. , Cognitive impairment dementia SKIN: No rashes. - Labs CBC & Chem 7: 05/28/23 07:45 05/27/23 08:08 Labs: Abnormal Lab Results - Last 24 Hours (Table) 05/28/23 Range/Units 07:45 WBC 11.3 H (3.8-10.6) k/uL RBC 3.65 L (3.80-5.40) m/uL Hgb 8.1 L D (11.4-16.0) gm/dL Hct 26.9 L (34.0-46.0) % MCV 73.7 L (80.0-100.0) fL MCH 22.1 L (25.0-35.0) pg MCHC 30.0 L (31.0-37.0) g/dL RDW 18.3 H (11.5-15.5) % Neutrophils # 8.7 H (1.3-7.7) k/uL Assessment and Plan Assessment: Assessment and plan Status post fall with right femoral neck fracture POD 2 Unit tract infection Pre Operative clearance for surgery Transient hyperkalemia Chronic anemia History of dementia * Continue to monitor postoperatively, monitor H&H, patient on Lovenox DVT prophylaxis * In regards to history of dementia continue with delirium precautions * In regards to urinary tract infection continue patient on Rocephin day 3, follow-up on urine cultures * Continue to monitor vitals, maintain fall precautions while inpatient
[2023-05-28] MEDS: FERROUS SULFATE 325 MG TAB PO SCH (18:00)
[2023-05-28] MEDS: HALOPERIDOL LACTATE 5 MG/ML 1 ML VIAL IM PRN (19:52)
[2023-05-28] MEDS: MELATONIN 3 MG TABLET PO SCH (19:58)
[2023-05-28] MEDS: SENNOSIDES-DOCUSATE SODIUM 1 EACH TAB PO SCH (19:58)
[2023-05-28] MEDS: DONEPEZIL 5 MG TAB PO SCH (19:58)
[2023-05-29] MEDS: SODIUM CHLORIDE 0.9% 1,000 ML IV SCH ×3 (03:46→23:37)
[2023-05-29 07:37] LABS: Anisocytosis Slight; Basophils % (A) 0 %; Eosinophils # (A) 0.1 k/uL (0-0.7); Eosinophils % (A) 1 %; HCT 25.1 % (34.0-46.0); HGB 7.4 gm/dL (11.4-16.0); Hypochromasia Marked; Lymphocytes # (A) 0.9 k/uL (1.0-4.8); Lymphocytes % (A) 9 %; MCH 21.3 pg (25.0-35.0); MCHC 29.5 g/dL (31.0-37.0); MCV 72.4 fL (80.0-100.0); Mean Platelet Volume 7.3; Microcytosis Moderate; Monocytes # (A) 0.8 k/uL (0-1.0); Monocytes % (A) 8 %; Neutrophils # (A) 7.3 k/uL (1.3-7.7); Neutrophils % (A) 79 %; Platelet Count 301 k/uL (150-450); RBC 3.47 m/uL (3.80-5.40); RDW 18.5 % (11.5-15.5); WBC 9.3 k/uL (3.8-10.6)
[2023-05-29 08:39] LABS: ALT 21 U/L (4-34); AST 66 U/L (14-36); African American GFR (CKD) >90 (>60 ml/min/1.73 sqM); Alkaline Phosphatase 66 U/L (38-126); Anion Gap 8 mmol/L; Blood Urea Nitrogen 18 mg/dL (7-17); Calcium 8.1 mg/dL (8.4-10.2); Carbon Dioxide 25 mmol/L (22-30); Chloride 102 mmol/L (98-107); Globulin 2.9 g/dL; Glucose 109 mg/dL (74-99); Non-African American GFR(CKD) >90 (>60 ml/min/1.73 sqM); Potassium 3.9 mmol/L (3.5-5.1); Sodium 135 mmol/L (137-145); Total Bilirubin 0.8 mg/dL (0.2-1.3); Total Protein 5.9 g/dL (6.3-8.2)
[2023-05-29] MEDS: ENOXAPARIN 40 MG/0.4 ML SYRINGE SQ SCH (09:16)
[2023-05-29] MEDS: HYDROcodone/APAP 5-325MG 1 EACH TAB PO PRN (09:16)
[2023-05-29] MEDS: FERROUS SULFATE 325 MG TAB PO SCH ×2 (09:19→17:21)
--- NOTE | 2023-05-29 09:34 | P.PN ---
Subjective Progress Note Date: 05/29/23 Principal diagnosis: Fall from standing Right hip pain Patient seen and examined this morning. Patient is resting comfortably in bed. Patient does have complaint of mild pain to the right hip. Surgical dressings are CDI, no shadowing noted. Dressings changed this morning by nursing staff. It is reported that patient continues to pull off her surgical dressings and x5 IV sites. Patient worked with physical therapy yesterday and did not tolerate well. Pateint was able to sit at bedside for 3 minutes and is mod-max assist x2. Continue to utilize ice packs and oral pain medication for pain management. Patients hgb has dropped to 7.4, orders placed to transfuse 1u RBC. We will continue to monitor post-op anemia. Continue to encourage patient to work with PT and perform bed exercises. Objective - Vital Signs Vital signs: Vital Signs Temp 98.4 F 05/29/23 07:09 Pulse 84 05/29/23 07:09 Resp 18 05/29/23 07:09 BP 159/74 05/29/23 07:09 Pulse Ox 96 05/29/23 07:09 FiO2 Intake & Output 05/28/23 05/29/23 05/29/23 18:59 06:59 18:59 Intake Total 240 Output Total 610 375 Balance -610 -375 240 Intake: Oral 240 Output: Urine 610 375 Other: Voiding Method Indwelling Catheter Indwelling Catheter # Voids 4 - Exam Inspection: Surgical incision to the right hip 2, dressings are clean dry and intact. Small skin abrasion to right knee. Sensation: Sensation is equal, symmetric, bilaterally intact throughout the upper and lower extremities Palpation: Nontender to palpation throughout bilateral upper and lower extremities and throughout spine exam Range of motion: Patient does have full range of motion bilateral upper and left lower extremities on exam, right lower extremity is externally rotated, limited ROM due to fracture and pain Motor: 5/5 in all major motor groups in the bilateral upper and left lower extremities, 4/5 right lower extremity Special tests: Negative Homans bilaterally. Negative Kip bilaterally. Negative clonus bilaterally. Log roll of right lower extremity reproduces pain. Neurovascular: Radial pulse intact, 2+ bilaterally. Cap refill under 3 seconds in digits upper extremities. - Labs CBC & Chem 7: 05/29/23 07:12 05/29/23 07:12 Labs: Abnormal Lab Results - Last 24 Hours (Table) 05/28/23 05/29/23 Range/Units 07:45 07:12 WBC 11.3 H (3.8-10.6) k/uL RBC 3.65 L 3.47 L (3.80-5.40) m/uL Hgb 8.1 L D 7.4 L (11.4-16.0) gm/dL Hct 26.9 L 25.1 L (34.0-46.0) % MCV 73.7 L 72.4 L (80.0-100.0) fL MCH 22.1 L 21.3 L (25.0-35.0) pg MCHC 30.0 L 29.5 L (31.0-37.0) g/dL RDW 18.3 H 18.5 H (11.5-15.5) % Neutrophils # 8.7 H (1.3-7.7) k/uL Lymphocytes # 0.9 L (1.0-4.8) k/uL Microbiology - Last 24 Hours (Table) 05/27/23 16:10 Urine Culture - Final Urine,Catheterized Assessment and Plan Assessment: Postop day 3: Right hip IT nail fixation Fall from standing Right hip femoral neck fracture Age indeterminate T4 compression fracture Post-Op anemia Plan: -Appreciate organizational development consultant and team management. -Transfuse 1u RBC -Activity: Ambulate QID, OOB all meals, up and about, limit lifting bending tw isting to less than 5 lbs. Use walker or cane if needed for stability. -Daily PT/OT, increase ambulation strength and balance. -Pain control: Adequate at this time -Meds: reviewed -GI ppx: senna, Miralax -DVT PPX: Lovenox -Hygiene: Shower today. Maintain dressings clean and dry. -Encourage IS 10x/hr -Dispo: Anticipate discharge return to [facility] in the next 24hrs *I reviewed and discussed this case with my attending Dr. Lofton, whom has reviewed this chart and films and is in agreement with assessment and plan of care as outlined above. I have personally seen and examined the patient, performed the documentation and the assessment and plan as written. Number of minutes spent on the visit: 10m.
--- NOTE | 2023-05-29 18:45 | P.PN ---
Subjective Progress Note Date: 05/29/23 * 82-year-old lady with past medical history of dementia presents from medical's after fall. At the time of presentation in ED patient complained of right hip pain * Workup in ER included hematology which were WBC of 14.9 likely reactive, hemoglobin 10.6 platelet count of 377 * Id. chemistry obtained on admission showed sodium 138 potassium 5.5 chloride 106, Quynh 25 BUNs 11 creatinine 0.57 blood glucose 133 * Urinalysis obtained on admission did show moderate leukocyte Estrace, WBC, * She was given collection for hyperkalemia, with follow potassium levels ordered Objective - Vital Signs Vital signs: Vital Signs Temp 97.5 F L 05/29/23 12:52 Pulse 88 05/29/23 12:52 Resp 16 05/29/23 12:52 BP 122/56 05/29/23 12:52 Pulse Ox 100 05/29/23 12:52 FiO2 Intake & Output 05/28/23 05/29/23 05/29/23 18:59 06:59 18:59 Intake Total 240 Output Total 610 375 225 Balance -610 -375 15 Intake: Oral 240 Output: Urine 610 375 225 Other: Voiding Method Indwelling Catheter Indwelling Catheter Indwelling Catheter # Voids 4 - Exam GENERAL: The patient is alert and oriented x 0 , not in any acute distress. , Ill appearance, pale HEENT: Normocephalic/atraumatic PULMONARY: Chest is clear to auscultation, no wheezing or crackles. ABDOMEN: Soft, nontender, nondistended, normoactive bowel sounds. No palpable organomegaly. MUSCULOSKELETAL: Range of motion limited right hip is currently incision bandage, no hematoma noted NEUROLOGICAL: Gross neurological examination did not reveal any focal deficits. , Cognitive impairment dementia SKIN: No rashes. - Labs CBC & Chem 7: 05/29/23 07:12 05/29/23 07:12 Labs: Abnormal Lab Results - Last 24 Hours (Table) 05/29/23 05/29/23 05/29/23 Range/Units 07:12 07:12 09:44 RBC 3.47 L (3.80-5.40) m/uL Hgb 7.4 L (11.4-16.0) gm/dL Hct 25.1 L (34.0-46.0) % MCV 72.4 L (80.0-100.0) fL MCH 21.3 L (25.0-35.0) pg MCHC 29.5 L (31.0-37.0) g/dL RDW 18.5 H (11.5-15.5) % Lymphocytes # 0.9 L (1.0-4.8) k/uL Sodium 135 L (137-145) mmol/L BUN 18 H (7-17) mg/dL Creatinine 0.49 L (0.52-1.04) mg/dL Glucose 109 H (74-99) mg/dL Calcium 8.1 L (8.4-10.2) mg/dL AST 66 H (14-36) U/L Total Protein 5.9 L (6.3-8.2) g/dL Albumin 3.0 L (3.5-5.0) g/dL Crossmatch See Detail Microbiology - Last 24 Hours (Table) 05/27/23 16:10 Urine Culture - Final Urine,Catheterized Assessment and Plan Assessment: Status post fall with right femoral neck fracture POD 3 Unit tract infection Pre Operative clearance for surgery Transient hyperkalemia Chronic anemia History of dementia * Continue to monitor postoperatively, monitor H&H, patient on Lovenox DVT prophylaxis * In regards to history of dementia continue with delirium precautions * In regards to urinary tract infection continue patient on Rocephin day 3, follow-up on urine cultures * Continue to monitor vitals, maintain fall precautions while inpatient
[2023-05-29] MEDS: MELATONIN 3 MG TABLET PO SCH (22:04)
[2023-05-29] MEDS: DONEPEZIL 5 MG TAB PO SCH (23:36)
[2023-05-29] MEDS: SENNOSIDES-DOCUSATE SODIUM 1 EACH TAB PO SCH (23:36)
[2023-05-30] MEDS: FERROUS SULFATE 325 MG TAB PO SCH ×2 (09:07→17:24)
[2023-05-30] MEDS: ENOXAPARIN 40 MG/0.4 ML SYRINGE SQ SCH (09:17)
[2023-05-30 09:44] LABS: Blood Urea Nitrogen 15.1 mg/dL (9.0-27.0); Calcium 8.2 mg/dL (8.7-10.3); Carbon Dioxide 25.4 mmol/L (21.6-31.8); Chloride 100 mmol/L (96-109); Glucose 114 mg/dL (70-110); Potassium 4.1 mmol/L (3.5-5.5); Sodium 136 mmol/L (135-145)
[2023-05-30 09:54] LABS: Basophils # (A) 0.05 X 10*3/uL (0.00-0.10); Basophils % (A) 0.5 %; Eosinophils # (A) 0.41 X 10*3/uL (0.04-0.35); Eosinophils % (A) 3.8 %; HCT 29.3 % (37.2-46.3); HGB 8.4 d/dL (12.0-15.0); Lymphocytes # (A) 1.33 X 10*3/uL (0.90-5.00); Lymphocytes % (A) 12.4 %; MCH 21.9 pg (27.0-32.0); MCHC 28.7 d/dL (32.0-37.0); MCV 76.5 FL (80.0-97.0); Mean Platelet Volume 9.5 FL (9.5-12.2); Monocytes # (A) 1.25 X 10*3/uL (0.20-1.00); Monocytes % (A) 11.6 %; NRBC Per 100 WBC 0.02 X 10*3/uL (0.00-0.01); Neutrophils # (A) 7.65 X 10*3/uL (1.80-7.70); Neutrophils % (A) 71.1 %; Platelet Count 308 X 10*3/uL (140-440); RBC 3.83 X 10*6/uL (4.10-5.20); RDW 19.9 % (11.5-14.5); WBC 10.75 X 10*3/uL (4.50-10.00)
--- NOTE | 2023-05-30 10:15 | P.PN ---
Progress Note - Text Progress Note Date: 05/30/23 patient seen and examined she is doing well. She is not really oriented this morning she needed a lateral retraction. She stated all 2. She has no pain however. Dressing is clean and dry on the right hand side under her hip. There is no pain with logroll the hip. She has good dorsalis plantarflexion EHL and FHL. No dermatomal deficits. Palpable pulses distally which is neurovascularly intact. Status post right IM nail fixation for right IT fracture weightbearing as tolerated PT OT pain control as needed GI prophylaxis DVT prophylaxis 4 weeks postoperatively orthopedically stable for DAVID
--- NOTE | 2023-05-30 19:53 | P.PN ---
Subjective * 82-year-old lady with past medical history of dementia presents from medical's after fall. At the time of presentation in ED patient complained of right hip pain * Workup in ER included hematology which were WBC of 14.9 likely reactive, hemoglobin 10.6 platelet count of 377 * Id. chemistry obtained on admission showed sodium 138 potassium 5.5 chloride 106, Quynh 25 BUNs 11 creatinine 0.57 blood glucose 133 * Urinalysis obtained on admission did show moderate leukocyte Estrace, WBC, * She was given collection for hyperkalemia, with follow potassium levels ordered 05/30/2023 Patient is seen and evaluated in room at bedside; remains disoriented and restless; patient is status post right IM nail fixation of right IT fracture Vital signs are reviewed and remained stable - Lab review shows slight upward trend of the PVC at 10.5, hemoglobin is improved at 8.4 from 7.4 yesterday; patient is status post transfusion with 1 unit packed RBCs -- Urine culture is negative to date; we will continue with IV Rocephin to compl ete 5 day course of empiric antibiotic therapy -- Orthopedic surgery recommending weightbearing as tolerated; pain control as needed; DVT prophylaxis for 4 weeks postoperatively; continue PT/OT -- Patient to be discharged to skilled rehab once stable Objective - Vital Signs Vital signs: Vital Signs Temp 98.2 F 05/30/23 07:21 Pulse 104 H 05/30/23 07:21 Resp 17 05/30/23 08:38 BP 120/80 05/30/23 07:21 Pulse Ox 92 L 05/30/23 07:21 FiO2 Intake & Output 05/29/23 05/30/23 05/30/23 18:59 06:59 18:59 Intake Total 340 310 Output Total 650 300 Balance -310 10 Intake: Oral 340 Blood Product 0 310 Rc As-1 Unit 0 310 [id number] Output: Urine 650 300 Other: Voiding Method Indwelling Catheter Indwelling Catheter Indwelling Catheter # Voids 4 - Exam GENERAL: The patient is alert and oriented x 0 , not in any acute distress. , Ill appearance, pale HEENT: Normocephalic/atraumatic PULMONARY: Chest is clear to auscultation, no wheezing or crackles. ABDOMEN: Soft, nontender, nondistended, normoactive bowel sounds. No palpable organomegaly. MUSCULOSKELETAL: Range of motion limited right hip is currently incision bandage, no hematoma noted NEUROLOGICAL: Gross neurological examination did not reveal any focal deficits. , Cognitive impairment dementia SKIN: No rashes. - Labs CBC & Chem 7: 05/30/23 05:19 05/30/23 05:19 Labs: Abnormal Lab Results - Last 24 Hours (Table) 05/29/23 05/30/23 05/30/23 Range/Units 09:44 05:19 05:19 WBC 10.75 H (4.50-10.00) X 10*3/uL RBC 3.83 L (4.10-5.20) X 10*6/uL Hgb 8.4 L (12.0-15.0) d/dL Hct 29.3 L (37.2-46.3) % MCV 76.5 L (80.0-97.0) FL MCH 21.9 L (27.0-32.0) pg MCHC 28.7 L (32.0-37.0) d/dL RDW 19.9 H (11.5-14.5) % Monocytes # 1.25 H (0.20-1.00) X 10*3/uL Eosinophils # 0.41 H (0.04-0.35) X 10*3/uL NRBC/100 WBC Diff 0.02 H (0.00-0.01) X 10*3/uL Creatinine 0.5 L (0.6-1.5) mg/dL BUN/Creatinine Ratio 30.20 H (12.00-20.00) Ratio Glucose 114 H (70-110) mg/dL Calcium 8.2 L (8.7-10.3) mg/dL Crossmatch See Detail Assessment and Plan Assessment: Status post fall with right femoral neck fracture POD 3 Unit tract infection Pre Operative clearance for surgery Transient hyperkalemia Chronic anemia History of dementia * Continue to monitor postoperatively, monitor H&H, patient on Lovenox DVT prophylaxis * In regards to history of dementia continue with delirium precautions * In regards to urinary tract infection continue patient on Rocephin day 3, follow-up on urine cultures * Continue to monitor vitals, maintain fall precautions while inpatient
[2023-05-30] MEDS: SODIUM CHLORIDE 0.9% 1,000 ML IV SCH (21:41)
[2023-05-31] MEDS: MELATONIN 3 MG TABLET PO SCH ×2 (02:32→20:01)
[2023-05-31] MEDS: SENNOSIDES-DOCUSATE SODIUM 1 EACH TAB PO SCH ×2 (02:32→20:01)
[2023-05-31] MEDS: DONEPEZIL 5 MG TAB PO SCH ×2 (02:32→20:01)
[2023-05-31] MEDS: FERROUS SULFATE 325 MG TAB PO SCH ×2 (05:13→18:07)
[2023-05-31] MEDS: ENOXAPARIN 40 MG/0.4 ML SYRINGE SQ SCH (07:38)
[2023-05-31 09:12] LABS: Blood Urea Nitrogen 11.3 mg/dL (9.0-27.0); Calcium 8.3 mg/dL (8.7-10.3); Carbon Dioxide 25.2 mmol/L (21.6-31.8); Chloride 102 mmol/L (96-109); Glucose 96 mg/dL (70-110); Sodium 139 mmol/L (135-145)
[2023-05-31 11:26] LABS: Anisocytosis Moderate; HCT 33.4 % (34.0-46.0); HGB 10.1 gm/dL (11.4-16.0); Hypochromasia Marked; MCHC 30.4 g/dL (31.0-37.0); MCV 75.8 fL (80.0-100.0); Mean Platelet Volume 7.7; Microcytosis Moderate; Platelet Count 329 k/uL (150-450); Poikilocytosis Slight; WBC 9.7 k/uL (3.8-10.6)
--- NOTE | 2023-05-31 12:15 | P.PN ---
Subjective Progress Note Date: 05/31/23 Principal diagnosis: Fall from standing Right hip pain Patient seen and examined this morning. Patient is resting comfortably in bed. Patient reports that her pain is managed on current regimen. Surgical dressings are CDI, no shadowing noted. Hemoglobin is stable today at 10.1. Continue to encourage patient to work with PT and perform bed exercises. Patient is cleared from orthopedic standpoint for return back to nursing facility. Objective - Vital Signs Vital signs: Vital Signs Temp 98.8 F 05/31/23 07:34 Pulse 98 05/31/23 08:00 Resp 18 05/31/23 08:00 BP 166/81 05/31/23 07:34 Pulse Ox 90 L 05/31/23 07:34 FiO2 Intake & Output 05/30/23 05/31/23 05/31/23 18:59 06:59 18:59 Output Total 900 450 Balance -900 -450 Output: Urine 900 450 Other: Voiding Method Indwelling Catheter Indwelling Catheter Indwelling Catheter - Exam Inspection: Surgical incision to the right hip 2, dressings are clean dry and intact. Small skin abrasion to right knee. Sensation: Sensation is equal, symmetric, bilaterally intact throughout the upper and lower extremities Palpation: Nontender to palpation throughout bilateral upper and lower extremities and throughout spine exam Range of motion: Patient does have full range of motion bilateral upper and left lower extremities on exam, right lower extremity is externally rotated, limited ROM due to surgical procedure and pain Motor: 5/5 in all major motor groups in the bilateral upper and left lower extremities, 4/5 right lower extremity Special tests: Negative Homans bilaterally. Negative Kip bilaterally. Negative clonus bilaterally. Log roll of right lower extremity reproduces pain. Neurovascular: Radial pulse intact, 2+ bilaterally. Cap refill under 3 seconds in digits upper extremities. - Labs CBC & Chem 7: 05/31/23 10:43 05/31/23 04:35 Labs: Abnormal Lab Results - Last 24 Hours (Table) 05/31/23 Range/Units 04:35 Creatinine 0.5 L (0.6-1.5) mg/dL BUN/Creatinine Ratio 22.60 H (12.00-20.00) Ratio Calcium 8.3 L (8.7-10.3) mg/dL Assessment and Plan Assessment: Postop day 5: Right hip IT nail fixation Fall from standing Right hip femoral neck fracture Age indeterminate T4 compression fracture Post-Op anemia Plan: -Appreciate gift consultant and team management. -Activity: Ambulate QID, OOB all meals, up and about, limit lifting bending twisting to less than 5 lbs. Use walker or cane if needed for stability. -Daily PT/OT, increase ambulation strength and balance. -Pain control: Adequate at this time -Meds: reviewed -GI ppx: senna, Miralax -DVT PPX: Lovenox -Hygiene: Shower today. Maintain dressings clean and dry. -Encourage IS 10x/hr -Dispo: Patient is cleared from orthopedic standpoint for discharge. Patient may return to nursing facility when bed available. *I reviewed and discussed this case with my attending Dr. Lofton, whom has reviewed this chart and films and is in agreement with assessment and plan of care as outlined above. I have personally seen and examined the patient, performed the documentation and the assessment and plan as written. Number of minutes spent on the visit: 10m.
--- NOTE | 2023-05-31 15:58 | P.PN ---
Subjective Progress Note Date: 05/31/23 * 82-year-old lady with past medical history of dementia presents from medical's after fall. At the time of presentation in ED patient complained of right hip pain * Workup in ER included hematology which were WBC of 14.9 likely reactive, hemoglobin 10.6 platelet count of 377 * Id. chemistry obtained on admission showed sodium 138 potassium 5.5 chloride 106, Quynh 25 BUNs 11 creatinine 0.57 blood glucose 133 * Urinalysis obtained on admission did show moderate leukocyte Estrace, WBC, * She was given collection for hyperkalemia, with follow potassium levels ordered 05/30/2023 Patient is seen and evaluated in room at bedside; remains disoriented and restless; patient is status post right IM nail fixation of right IT fracture Vital signs are reviewed and remained stable - Lab review shows slight upward trend of the PVC at 10.5, hemoglobin is improved at 8.4 from 7.4 yesterday; patient is status post transfusion with 1 unit packed RBCs -- Urine culture is negative to date; we will continue with IV Rocephin to complete 5 day course of empiric antibiotic therapy -- Orthopedic surgery recommending weightbearing as tolerated; pain control as needed; DVT prophylaxis for 4 weeks postoperatively; continue PT/OT -- Patient to be discharged to skilled rehab once stable 05/31/2023 Patient is seen and evaluated sitting up in bed; no specific complaints reported Vital signs and review shows blood pressure of 161/65, pulse 18 with O2 saturation of 90% on 2 L Lab review shows WBC of 9.7, hemoglobin of 10.1 and platelet count of 329, sodium 139, potassium 4.0, BUN/creatinine of 11/0.5 -- Patient is status post right hip surgery, POD #5 --Blood review shows WBC of 9.7, hemoglobin of 10.1, crit count of 329, sodium 139, potassium 4.0, BUN/creatinine of 11/0.5 -- Patient has been cleared for discharge to skilled rehab once arrangements are made Objective - Vital Signs Vital signs: Vital Signs Temp 98.8 F 05/31/23 07:34 Pulse 98 05/31/23 08:00 Resp 18 05/31/23 08:00 BP 166/81 05/31/23 07:34 Pulse Ox 90 L 05/31/23 07:34 FiO2 Intake & Output 05/30/23 05/31/23 05/31/23 18:59 06:59 18:59 Output Total 900 450 Balance -900 -450 Output: Urine 900 450 Other: Voiding Method Indwelling Catheter Indwelling Catheter Indwelling Catheter - Exam GENERAL: The patient is alert and oriented x 0 , not in any acute distress. , Ill appearance, pale HEENT: Normocephalic/atraumatic PULMONARY: Chest is clear to auscultation, no wheezing or crackles. ABDOMEN: Soft, nontender, nondistended, normoactive bowel sounds. No palpable organomegaly. MUSCULOSKELETAL: Range of motion limited right hip is currently incision bandage, no hematoma noted NEUROLOGICAL: Gross neurological examination did not reveal any focal deficits. , Cognitive impairment dementia SKIN: No rashes. - Labs CBC & Chem 7: 05/31/23 10:43 05/31/23 04:35 Labs: Abnormal Lab Results - Last 24 Hours (Table) 05/31/23 05/31/23 Range/Units 04:35 10:43 Hgb 10.1 L (11.4-16.0) gm/dL Hct 33.4 L (34.0-46.0) % MCV 75.8 L (80.0-100.0) fL MCH 23.0 L (25.0-35.0) pg MCHC 30.4 L (31.0-37.0) g/dL RDW 20.0 H (11.5-15.5) % Creatinine 0.5 L (0.6-1.5) mg/dL BUN/Creatinine Ratio 22.60 H (12.00-20.00) Ratio Calcium 8.3 L (8.7-10.3) mg/dL Assessment and Plan Assessment: Status post fall with right femoral neck fracture POD 3 Unit tract infection Pre Operative clearance for surgery Transient hyperkalemia Chronic anemia History of dementia * Continue to monitor postoperatively, monitor H&H, patient on Lovenox DVT prophylaxis * In regards to history of dementia continue with delirium precautions * In regards to urinary tract infection continue patient on Rocephin day 3, follow-up on urine cultures * Continue to monitor vitals, maintain fall precautions while inpatient
[2023-05-31] MEDS ORDERED: FUROSEMIDE 10 MG/ML 2 ML VIAL IV ONE (15:59)
[2023-05-31] MEDS ORDERED: FUROSEMIDE 20 MG TAB PO STA (16:29)
[2023-05-31] MEDS: SODIUM CHLORIDE 0.9% 1,000 ML IV SCH (20:15)
[2023-06-01] MEDS: FERROUS SULFATE 325 MG TAB PO SCH (05:01)
[2023-06-01] MEDS ORDERED: traMADol 50 MG TAB PO PRN (07:40)
[2023-06-01 08:22] VITALS: RESP 18
--- NOTE | 2023-06-01 08:55 | P.PN ---
Subjective Progress Note Date: 06/01/23 Principal diagnosis: Fall from standing Right hip pain Patient seen and examined this morning. Patient is resting comfortably in bed. Patient reports that her pain is managed on current regimen. Surgical dressings are CDI, no shadowing noted. Ortiz catheter to be removed. Continue to encourage patient to work with PT and perform bed exercises. Patient is cleared from ortho pedic standpoint for return back to nursing facility. Objective - Vital Signs Vital signs: Vital Signs Temp 98.2 F 06/01/23 01:53 Pulse 95 06/01/23 01:53 Resp 20 06/01/23 01:53 BP 161/83 06/01/23 01:53 Pulse Ox 90 L 06/01/23 01:53 FiO2 Intake & Output 05/31/23 06/01/23 06/01/23 18:59 06:59 18:59 Output Total 400 325 Balance -400 -325 Output: Urine 400 325 Other: Voiding Method Indwelling Catheter Indwelling Catheter - Exam Inspection: Surgical incision to the right hip 2, dressings are clean dry and intact. Small skin abrasion to right knee. Sensation: Sensation is equal, symmetric, bilaterally intact throughout the upper and lower extremities Palpation: Nontender to palpation throughout bilateral upper and lower extremities and throughout spine exam Range of motion: Patient does have full range of motion bilateral upper and left lower extremities on exam, right lower extremity is externally rotated, limited ROM due to surgical procedure and pain Motor: 5/5 in all major motor groups in the bilateral upper and left lower extremities, 4/5 right lower extremity Special tests: Negative Homans bilaterally. Negative Kip bilaterally. Negative clonus bilaterally. Log roll of right lower extremity reproduces pain. Neurovascular: Radial pulse intact, 2+ bilaterally. Cap refill under 3 seconds in digits upper extremities. - Labs CBC & Chem 7: 05/31/23 10:43 05/31/23 04:35 Labs: Abnormal Lab Results - Last 24 Hours (Table) 05/31/23 05/31/23 Range/Units 04:35 10:43 Hgb 10.1 L (11.4-16.0) gm/dL Hct 33.4 L (34.0-46.0) % MCV 75.8 L (80.0-100.0) fL MCH 23.0 L (25.0-35.0) pg MCHC 30.4 L (31.0-37.0) g/dL RDW 20.0 H (11.5-15.5) % Creatinine 0.5 L (0.6-1.5) mg/dL BUN/Creatinine Ratio 22.60 H (12.00-20.00) Ratio Calcium 8.3 L (8.7-10.3) mg/dL Assessment and Plan Assessment: Postop day 6: Right hip IT nail fixation Fall from standing Right hip femoral neck fracture Age indeterminate T4 compression fracture Post-Op anemia Plan: -Appreciate organizational development consultant and team management. -Activity: Ambulate QID, OOB all meals, up and about, limit lifting bending twisting to less than 5 lbs. Use walker or cane if needed for stability. -Daily PT/OT, increase ambulation strength and balance. -Pain control: Adequate at this time -Meds: reviewed -GI ppx: senna, Miralax -DVT PPX: Lovenox -Hygiene: Shower today. Maintain dressings clean and dry. -Encourage IS 10x/hr -Dispo: Patient is cleared from orthopedic standpoint for discharge. Patient may return to nursing facility when bed available. *I reviewed and discussed this case with my attending Dr. Lofton, whom has reviewed this chart and films and is in agreement with assessment and plan of care as outlined above. I have personally seen and examined the patient, performed the documentation and the assessment and plan as written. Number of minutes spent on the visit: 10m.
[2023-06-01] MEDS: ENOXAPARIN 40 MG/0.4 ML SYRINGE SQ SCH (09:23)
--- NOTE | 2023-06-01 12:03 | P.DS ---
Providers Date of admission: 05/26/23 03:41 Expected date of discharge: 06/01/23 Attending physician: Jose Lofton DO Consults: 05/26/23 03:44 Consult Physician Urgent Consulting Provider: Maddie Gunn Consult Reason/Comments: Medical management/clearance Do you want consulting provider notified?: Yes Primary care physician: Ilana Rogers DO Hospital Course: Date of admission: 05/25/2023 Date of discharge: 06/01/2023 Admission diagnosis: Right hip IT fracture Discharge diagnosis: Same Attending physician: Dr. Lofton Surgical procedures: Right hip IM nail Brief history: Patient is a 82-year-old female with a history of right hip IT fracture status post fall. At this point patient has failed conservative treatment measures and has opted to proceed with a elective right hip IM nail. Hospital course: Details of patient's surgery can be found in operative report. Patient tolerated the procedure well and was subsequently transported to orthopedic floor. Patient's orthopeidc and medical care was provided daily. Patient had daily laboratory tests performed for evaluation of overall blood counts. Patient had daily physical therapy to include strengthening range of motion as well as education with walker ambulation. Patient was treated with Lovenox for their postoperative DVT prophylaxis during their inpatient stay. Patient was noted to have a relatively uneventful postoperative course. Patient reported satisfactory pain control with oral pain medications by postoperative day 6. Patient showed satisfactory progress with physical therapy. Patient moved steadily through the program and had no difficulty meeting the goals by postoperative day 6. Given patient's otherwise satisfactory course and having met physical therapy goals, plan is to discharge patient to rehab on postoperative day 6. Discharge condition/disposition: Patient will be discharged to rehab in stable condition. Discharge medications: Instructions are given on resumption of patient's normal daily medications per primary care recommendation, in addition patient will be prescribed tramadol; Lovenox; senna. Discharge instructions: 1. Wound care and infection precautions, keep incision dry and covered while showering, no lotions, creams, moisturizers. No soaking, tubs, pools, hottubs. Do not scrub over the incision. 2. Weight-bear as tolerated with walker / cane until follow-up. 3. Ice and elevate when necessary. Do not exceed 20 minutes per hour with ice pack. 4. Utilize compression sleeve until seen at first follow up appointment. 5. Nursing care. 6. Physical therapy. 7. Pain meds and anticoagulants per prescription. 8. Pain medication has potential to cause constipation. Increase oral fluid and fiber intake. Contact primary care provider if you have not had a bowel movement within 48 hours after discharge 9. No anti-inflammatory medication until discussed at first post operative visit, this including Motrin, Aleve, Mobic, Diclofenac. 10. Follow up in office at [address] Jose Lofton. 11. Follow up with your primary care doctor 7-10 days after discharge. 12. Contact [facility] with any questions, . Assessment: Right hip IT fracture Procedures: Right hip IM nail Patient Condition at Discharge: Fair Plan - Discharge Summary Discharge Rx Participant: No New Discharge Prescriptions: New cefaDROXiL [Duricef] 500 mg PO Q12HR #10 cap Enoxaparin [Lovenox] 40 mg SQ DAILY #24 each Sennosides/Docusate Sodium [Senna Plus 8.6-50 mg Tablet] 1 each PO DAILY PRN #20 tablet PRN Reason: Constipation traMADol HCL 50 mg PO Q6H PRN #28 tab PRN Reason: Pain No Action Donepezil [Aricept] 5 mg PO HS Melatonin 3 mg PO HS tab Acetaminophen [Tylenol 8 Hour] 650 mg PO Q6H PRN PRN Reason: Pain Discharge Medication List Donepezil [Aricept] 5 mg PO HS 01/30/23 [History] Melatonin 3 mg PO HS tab 02/09/23 [Rx] Acetaminophen [Tylenol 8 Hour] 650 mg PO Q6H PRN 05/26/23 [History] Enoxaparin [Lovenox] 40 mg SQ DAILY #24 each 06/01/23 [Rx] Sennosides/Docusate Sodium [Senna Plus 8.6-50 mg Tablet] 1 each PO DAILY PRN #20 tablet 06/01/23 [Rx] cefaDROXiL [Duricef] 500 mg PO Q12HR #10 cap 06/01/23 [Rx] traMADol HCL 50 mg PO Q6H PRN #28 tab 06/01/23 [Rx] Follow up Appointment(s)/Referral(s): Ilana Rogers DO [Primary Care Provider] - 1-2 days Jose Lofton DO [Doctor of Osteopathic Medicine] - 10 Days Patient Instructions/Handouts: Hip Fracture (ED), Intramedullary Nailing (DC) Activity/Diet/Wound Care/Special Instructions: Orthopedic Discharge Instructions: Wound care and infection precautions, keep incision dry and covered while showering, no lotions, creams, moisturizers. No soaking, pools, hot tubs. Do not scrub over incision. Non weight bearing of Left lower extremity with walker / crutches until follow-up. Ice and elevate when necessary. Do not exceed 20 minutes per hour with ice pack. Pain meds and anticoagulants per prescription. Pain medication has potential to cause constipation. Increase oral fluid and fiber intake. Contact primary care provider if you have not had a bowel movement within 48 hours after discharge. No anti-inflammatory medication until discussed at first post operative visit, this including Motrin, Aleve, Mobic, Diclofenac, Aspirin. Follow up in office at 2 weeks postop Follow up with your primary care doctor 7-10 days after discharge. Contact [facility] with any questions, . Discharge Disposition: TRANSFER TO SNF/ECF
[2023-06-01 14:45] VITALS: BP 155/84; PULSE 85; TEMP 98.1
--- NOTE | 2023-06-03 11:25 | CDI ---
Documentation Clarification Form Date: 06/03/2023 From: Nidia Carrasquillo Admit Date: 05/26/2023 03:41:00 AM Patient Name: Anamika Monet Visit Number: [id number] Discharge Date: 06/01/2023 06:28:00 PM ATTENTION: The Clinical Documentation Specialists (CDI) and [facility] Coding Staff appreciate your assistance in clarifying documentation. Please respond to the clarification below the line at the bottom and electronically sign. The CDI & [facility] Coding staff will review the response and follow-up if needed. Please note: Queries are made part of the Legal Health Record. If you have any questions, please contact the author of this message via ITS. Dr. Jose Lofton Post op anemia is documented in PN's 05/29, 05/31 and 06/01 and patient had IM nailing of right IT fracture on 05/26. Additional clarification is requested regarding the relationship, if any, that exists between the diagnosis and the procedure. Patients Admitting Diagnosis: Right hip IT fracture and chronic anemia Post-Operative Diagnosis: Right hip IT fracture and chronic anemia Procedure performed: IM nailing History/Risk Factors: chronic anemia, UTI Clinical Indicators: Admit Hgb 10.6 dropped to 7.4 on 05/29 Treatment: RBC transfusion Consults: Medical consult What relationship, if any, exists between the diagnosis of post op anemia and the procedure: [ ] Post op anemia is a complication of surgical procedure [ ] Post op anemia is an expected outcome of the surgical procedure [ ] Post op anemia is related to patients co-morbid condition(s) of chronic anemia & not a complication of the procedure [ ] Post op anemia has been ruled out [ ] Other please specify ____ [ ] Unable to determine Post op anemia is related to patients co-morbid condition(s) of chronic anemia & not a direct complication of the procedure MTDD
--- NOTE | 2023-06-05 13:11 | CDI ---
Documentation Clarification Form Date: 06/05/2023 12:43:41 PM From: Brnady Saunders RN, CCDS Email: [email or web address] Admit Date: 05/26/2023 03:41:00 AM Patient Name: Anamika Monet Visit Number: [id number] Discharge Date: 06/01/2023 06:28:00 PM ATTENTION: The Clinical Documentation Specialists (CDI) and [facility] Coding Staff appreciate your assistance in clarifying documentation. Please respond to the clarification below the line at the bottom and electronically sign. The CDI & [facility] Coding staff will review the response and follow-up if needed. Please note: Queries are made part of the Legal Health Record. If you have any questions, please contact the author of this message via ITS. Dr. Sugar Payton Your patient received supplemental oxygen 2-6LNC throughout admission. Please clarify what condition/diagnosis was being treated. History/Risk Factors: 82 yo with dementia. Presented from [facility] after a fall. Admitted with right femoral neck fracture. S/P IM nail fixation on 05/26. Clinical indicators: 05/27 IM: "Transient hypoxia." 05/27 Nursing note: "SpO2 has been difficult to assess, I did obtain an ear pulse ox, pulse ox would dip slowly down to mid 80's then slowly rise to mid 90's. Pt appears pale in color. 05/26 pulse ox: 88-93-84-68 05/27 pulse ox: 87-81-89 05/28 pulse ox: 84 06/01 pulse ox: 87 Treatment: O2 2-6LNC; Incentive spirometer What diagnosis were you treating with supplemental oxygen [y ] Acute hypoxic respiratory failure [ ] No additional diagnosis [ ] Other, please specify [ ] Unable to determine MTDD
--- NOTE | 2023-06-05 21:06 | P.PN ---
Subjective Progress Note Date: 06/01/23 * 82-year-old lady with past medical history of dementia presents from medical's after fall. At the time of presentation in ED patient complained of right hip pain * Workup in ER included hematology which were WBC of 14.9 likely reactive, hemoglobin 10.6 platelet count of 377 * Id. chemistry obtained on admission showed sodium 138 potassium 5.5 chloride 106, Quynh 25 BUNs 11 creatinine 0.57 blood glucose 133 * Urinalysis obtained on admission did show moderate leukocyte Estrace, WBC, * She was given collection for hyperkalemia, with follow potassium levels ordered 05/30/2023 Patient is seen and evaluated in room at bedside; remains disoriented and restless; patient is status post right IM nail fixation of right IT fracture Vital signs are reviewed and remained stable - Lab review shows slight upward trend of the PVC at 10.5, hemoglobin is improved at 8.4 from 7.4 yesterday; patient is status post transfusion with 1 unit packed RBCs -- Urine culture is negative to date; we will continue with IV Rocephin to complete 5 day course of empiric antibiotic therapy -- Orthopedic surgery recommending weightbearing as tolerated; pain control as needed; DVT prophylaxis for 4 weeks postoperatively; continue PT/OT -- Patient to be discharged to skilled rehab once stable 05/31/2023 Patient is seen and evaluated sitting up in bed; no specific complaints reported Vital signs and review shows blood pressure of 161/65, pulse 18 with O2 saturation of 90% on 2 L Lab review shows WBC of 9.7, hemoglobin of 10.1 and platelet count of 329, sodium 139, potassium 4.0, BUN/creatinine of 11/0.5 -- Patient is status post right hip surgery, POD #5 --Blood review shows WBC of 9.7, hemoglobin of 10.1, crit count of 329, sodium 139, potassium 4.0, BUN/creatinine of 11/0.5 -- Patient has been cleared for discharge to skilled rehab once arrangements are made 06/01/2023 Patient is seen and evaluated in follow-up today and is being scheduled for discharge to ECF. Patient is medically stable and will be going to ECF recommend follow-up labs in the outpatient setting as well as encouraged oral intake and home medications reviewed and resumed as appropriate. Patient is afebrile continued on supplemental oxygen and recommend wean as tolerated. Patient has completed antibiotics for urinary tract infection. Review of systems: Constitutional: No reports of fatigue, fever, or chills Cardiovascular: No reports of chest pain or palpitations Respiratory: No reports of shortness of breath or cough GI: No reports of nausea, vomiting, or diarrhea : No reports of dysuria or retention Neurovascular: Reports of generalized weakness All medications have been reviewed Physical exam: GENERAL: The patient is alert and oriented x 0 , not in any acute distress. , Ill appearance, pale HEENT: Normocephalic/atraumatic PULMONARY: Chest is clear to auscultation, no wheezing or crackles. ABDOMEN: Soft, nontender, nondistended, normoactive bowel sounds. No palpable organomegaly. MUSCULOSKELETAL: Range of motion limited right hip is currently incision b andage, no hematoma noted NEUROLOGICAL: Gross neurological examination did not reveal any focal deficits. , Cognitive impairment dementia SKIN: No rashes. Assessment: Status post fall with right femoral neck fracture Unit tract infection, present on admission and has received adequate antibiotics will not require antibiotics on discharge Acute hypoxic respiratory failure Pre Operative clearance for surgery Transient hyperkalemia Chronic anemia History of dementia Plan: Continue to monitor postoperatively, monitor H&H, patient on Lovenox DVT prophylaxis In regards to history of dementia continue with delirium precautions In regards to urinary tract infection , patient has completed adequate amount of antibiotics will not require antibiotics upon discharge Continue supplemental oxygen and wean FiO2 as tolerated. Encourage incentive spirometer use Patient is medically stable for discharge to [facility] today. Recommend follow-up in the outpatient setting with primary care provider Will continue to follow with orthopedics during hospitalization. Thank you kindly for this consultation. The impression and plan of care has been dictated by Soo Bar, Nurse Practitioner as directed. Dr. Umair MD I have performed a history and examination and MDM of this patient, discussed the same with the dictator, and agree with the dictator's assessment and plan as written ,documented as a scribe. Based on total visit time, I have performed more than 50% of the visit. Objective - Vital Signs Vital signs: Vital Signs Temp 98.0 F 06/01/23 07:15 Pulse 92 06/01/23 07:15 Resp 18 06/01/23 07:15 BP 151/64 06/01/23 07:15 Pulse Ox 96 06/01/23 07:15 FiO2 Intake & Output 05/31/23 06/01/23 06/01/23 18:59 06:59 18:59 Output Total 400 325 Balance -400 -325 Output: Urine 400 325 Other: Voiding Method Indwelling Catheter Indwelling Catheter - Labs CBC & Chem 7: 05/31/23 10:43 05/31/23 04:35 Labs: Abnormal Lab Results - Last 24 Hours (Table) 05/31/23 Range/Units 10:43 Hgb 10.1 L (11.4-16.0) gm/dL Hct 33.4 L (34.0-46.0) % MCV 75.8 L (80.0-100.0) fL MCH 23.0 L (25.0-35.0) pg MCHC 30.4 L (31.0-37.0) g/dL RDW 20.0 H (11.5-15.5) %
== END 2023-06-01 18:28 | DRG 480 ==
LOC: EC 02:18 → 4SSUR 03:41
PROVIDERS: ADMIT Orthopaedic Surgery; ATTEND Orthopaedic Surgery
PROC: 0QS636Z Reposition Right Upper Femur with Intramedullary Internal Fixation Device, Percutaneous Approach (ICD-10-PCS; principal; 2023-05-26 11:15)
PROC: 30233N1 Transfusion of Nonautologous Red Blood Cells into Peripheral Vein, Percutaneous Approach (ICD-10-PCS; 2023-05-29)
DX: S72.141A Displaced intertrochanteric fracture of right femur, initial encounter for closed fracture (principal); J96.01 Acute respiratory failure with hypoxia; M48.54XA Collapsed vertebra, not elsewhere classified, thoracic region, initial encounter for fracture; N39.0 Urinary tract infection, site not specified; S80.211A Abrasion, right knee, initial encounter; W01.0XXA Fall on same level from slipping, tripping and stumbling without subsequent striking against object, initial encounter; Y92.009 Unspecified place in unspecified non-institutional (private) residence as the place of occurrence of the external cause; D64.9 Anemia, unspecified; E87.5 Hyperkalemia; Z28.21 Immunization not carried out because of patient refusal; Z79.899 Other long term (current) drug therapy; F17.200 Nicotine dependence, unspecified, uncomplicated
CPT/HCPCS: 70450; 71045; 72125; 73501; 73502; 80048; 80053; 81001; 84132; 85025; 85027; 85610; 85730; 86850; 86900; 86901; 86920; 87086; 93005; 96374; 99285